=== PATIENT | female | born 1935 | race Caucasian/White ===

== ENCOUNTER 2016-10-18 12:50 | Inpatient (IN) | payer OTHER ==
[2016-10-18 12:57] VITALS: BMI 25.4
--- NOTE | 2016-10-18 14:21 | PDOC ---
History of Present Illness - General Chief Complaint: Lightheaded Stated Complaint: LIGHTHEADED/vomit/diarhea Time Seen by Provider: 10/18/16 14:19 History Source: Patient Exam Limitations: No Limitations - History of Present Illness Initial Comments: 10/18/16 17:05 81-year-old female with history of recurring hyponatremia of unclear etiology presents with nonspecific complaints of feeling unwell and dizzy for a few days and some right-sided lower abdominal discomfort. Pt. states that she has had increased nausea and vomiting starting three days prior. Her nausea and vomiting was the worst today so she presented for evaluation. Admits to nausea, vomiting, dizziness, abdominal pain, frequency and urgency. Denies fevers, chills, sob, cough, syncope, lightheadedness, chest pain, diarrhea, constipation and hematuria. Past History - Travel Traveled outside of the country in the last 30 days: No Close contact w/someone who was outside of country & ill: No - Past Medical History Allergies/Adverse Reactions: Allergies Allergy/AdvReac Type Severity Reaction Status Date / Time No Known Allergies Allergy Verified 10/18/16 12:53 Home Medications: Ambulatory Orders Atorvastatin Ca [Lipitor] 20 mg PO HS 10/18/16 Carbamazepine [Tegretol -] 100 mg PO BID 10/18/16 Glimepiride [Amaryl] 4 mg PO DAILY 10/18/16 Ranitidine HCl [Zantac] 150 mg PO BID 10/18/16 Valsartan [Diovan] 320 mg PO DAILY 10/18/16 Anemia: No Asthma: No Cancer: No Cardiac Disorders: No CVA: No COPD: No CHF: No Dementia: No Diabetes: Yes (NIDDM) GI Disorders: Yes (GERD) Disorders: No HTN: Yes Hypercholesterolemia: Yes Liver Disease: No Seizures: No Thyroid Disease: No Other medical history: vertigo - Surgical History Abdominal Surgery: No Appendectomy: No Cardiac Surgery: No Cholecystectomy: No Lung Surgery: No Neurologic Surgery: No Orthopedic Surgery: No - Psycho/Social/Smoking Cessation Hx Anxiety: No Suicidal Ideation: No Smoking History: Never smoked Have you smoked in the past 12 months: No Information on smoking cessation initiated: No Hx Alcohol Use: No Drug/Substance Use Hx: No Substance Use Type: None Hx Substance Use Treatment: No Review of Systems - Review of Systems Able to Perform ROS?: Yes Is the patient limited Chinese proficient: No Constitutional: Yes: Weakness. No: Chills, Fever, Malaise Respiratory: No: Cough, Shortness of Breath, Wheezing Cardiac (ROS): No: Chest Pain, Lightheadedness, Palpitations, Syncope, Chest Tightness ABD/GI: Yes: Nausea, Vomiting, Other (lower abdominal pain). No: Constipated, Diarrhea : Yes: Frequency, Urgency. No: Burning, Dysuria, Flank Pain, Hematuria Musculoskeletal: No: Back Pain, Joint Pain, Neck Pain Neurological: Yes: Dizziness. No: Headache, Numbness, Paresthesia, Weakness, Unsteady Gait All Other Systems: Reviewed and Negative *Physical Exam - Vital Signs Last Vital Signs Temp Pulse Resp BP Pulse Ox 98.2 F 92 H 16 148/77 97 10/18/16 13:43 10/18/16 13:43 10/18/16 13:43 10/18/16 13:43 10/18/16 13:43 - Physical Exam Comments: 10/18/16 20:09 GENERAL: Well developed, well nourished. Awake and alert. No acute distress, laying in exam bed HEENT: Normocephalic, atraumatic. PERRLA, EOMI. No conjunctival pallor. Sclera are non- icteric. Moist mucous membranes. Oropharynx is clear. NECK: Supple. Full ROM. No JVD. Carotid pulses 2+ and symmetric, without bruits. No thyromegaly. No lymphadenopathy. CARDIOVASCULAR: Regular rate and rhythm. No murmurs, rubs, or gallops. Distal pulses are 2+ and symmetric. PULMONARY: No evidence of respiratory distress. Lungs clear to auscultation bilaterally. No wheezing, rales or rhonchi. ABDOMINAL: TTP of the suprapubic region and RLQ. (-) rovsings, see signs. Soft. Non- distended. No rebound or guarding. No organomegaly. Normoactive bowel sounds. MUSCULOSKELETAL Normal range of motion at all joints. No bony deformities or tenderness. No CVA tenderness. EXTREMITIES: No cyanosis. No clubbing. No edema. No calf tenderness. SKIN: Warm and dry. Normal capillary refill. No rashes. No jaundice. NEUROLOGICAL: Alert, awake, appropriate. Cranial nerves 2-12 intact. No deficits to light touch and temperature in face, upper extremities and lower extremities. No motor deficits in the in face, upper extremities and lower extremities. Normoreflexic in the upper and lower extremities. Normal speech. Toes are down- going bilaterally. Gait is normal without ataxia. PSYCHIATRIC: Cooperative. Good eye contact. Appropriate mood and affect. ED Treatment Course - LABORATORY CBC & Chemistry Diagram: 10/20/16 07:35 10/20/16 07:30 Medical Decision Making - Medical Decision Making 10/18/16 14:10 Patient is a 81-year-old female with past medical history of hyponatremia with unclear origin presents to the emergency department for 3 days of vomiting nausea and dizziness. Differential diagnosis are including but not limited to electrolyte imbalance, infection, ACS. We'll initiate broad workup at this time. 1.CBC, CMP, cardiac labs, UA, UC 2.IV fluids, Zofran 3.reevaluate 10/18/16 14:27 Urine is positive for leuk esterase. WBC's 13. We'll treat empirically for UTI in the emergency department at this time. Patient's current sodium is 124. Could be the cause of her dizziness. We will admit to the hospital for further treatment. Patient's primary care doctor is Dr. Bain. Dr. Ferro admits for him. Will call at this time. Pt, reports feeling better after fluids and zofran. Ceftriaxone started empirically 10/18/16 14:[address] Ferro. Agrees to admission *DC/Admit/Observation/Transfer Diagnosis at time of Disposition: Hyponatremia UTI (urinary tract infection) Qualifiers: Urinary tract infection type: site unspecified Hematuria presence: with hematuria Qualified Code(s): N39.0 - Urinary tract infection, site not specified - Discharge Dispostion Condition at time of disposition: Stable Admit: Yes - Referrals
[2016-10-18] MEDS ORDERED: SODIUM CHLORIDE 1,000 ML IV STA (14:36)
[2016-10-18] MEDS ORDERED: ONDANSETRON 4 MG/2 ML VIAL IVPUSH ONE (14:36)
[2016-10-18] MEDS ORDERED: ONDANSETRON 4 MG/2 ML VIAL ONE (14:52)
[2016-10-18 14:57] LABS: BASOPHIL 0.3 % (0-2.0); MCH 31.5 pg (25.7-33.7); MCHC 34.6 g/dl (32.0-36.0); MEAN CELL VOLUME 91.1 fl (80-96); MEAN PLT VOLUME 7.1 fl (7.5-11.1); NEUTROPHILS 81.7 % (42.8-82.8); PLATELET COUNT 316 K/MM3 (134-434); RDW 12.6 % (11.6-15.6); WHITE BLOOD COUNT 13.6 K/mm3 (4.0-10.0)
[2016-10-18 15:17] LABS: INR 1.06 (0.82-1.09); PROTHROMBIN TIME (PATIENT) 11.7 SEC (9.98-11.88)
[2016-10-18 15:23] LABS: ALBUMIN 3.9 g/dl (3.4-5.0); ANION GAP 13 (8-16); CO2 24 mmol/L (21-32); CREATININE 0.8 mg/dL (0.55-1.02); GLUCOSE,RANDOM 204 mg/dL (74-106); MAGNESIUM 1.8 mg/dL (1.8-2.4); SGOT/AST 13 U/L (15-37); SGPT/ALT 15 U/L (12-78)
[2016-10-18 15:24] LABS: URINE APPEARANCE CLOUDY; URINE BILIRUBIN NEGATIVE (NEGATIVE); URINE BLOOD 2+ (NEGATIVE); URINE COLOR DKYELLOW; URINE GLUCOSE (UA) 2+ (NEGATIVE); URINE KETONE 2+ (NEGATIVE); URINE NITRITE NEGATIVE (NEGATIVE); URINE UROBILINOGEN NEGATIVE mg/dL (0.2-1.0)
[2016-10-18] MEDS ORDERED: ACETAMINOPHEN 1000 MG/100 ML VIAL (NON FORMULARY) IVPB ONE (15:24)
[2016-10-18 15:25] LABS: ALK PHOS 93 U/L (45-117); BILIRUBIN,TOTAL 0.7 mg/dL (0.2-1.0); TOT PROT 7.2 g/dl (6.4-8.2)
[2016-10-18 15:25] LABS: URINE LEUK ESTERASE 2+ (NEGATIVE); URINE PROTEIN 1+ (NEGATIVE)
[2016-10-18] MEDS ORDERED: ACETAMINOPHEN INJECTION 100 ML IVPB ONE (15:28)
[2016-10-18 15:31] LABS: TROPONIN I 0.04 ng/ml (0.00-0.05)
--- NOTE | 2016-10-18 15:45 | PDOC ---
*Physical Exam - Vital Signs Last Vital Signs Temp Pulse Resp BP Pulse Ox 98.1 F 82 17 158/89 98 10/18/16 15:31 10/18/16 15:31 10/18/16 15:31 10/18/16 15:31 10/18/16 15:31 ED Treatment Course - LABORATORY CBC & Chemistry Diagram: 10/18/16 14:50 10/18/16 14:50 - ADDITIONAL ORDERS Additional order review: Laboratory Results 10/18/16 10/18/16 10/18/16 15:01 14:50 14:50 INR 1.06 Sodium Potassium Chloride Carbon Dioxide Anion Gap BUN Creatinine Creat Clearance w eGFR Random Glucose Calcium Magnesium Total Bilirubin AST ALT Alkaline Phosphatase Creatine Kinase Troponin I Total Protein Albumin Lipase Cancelled Urine Color Dkyellow Urine Appearance Cloudy Urine pH 5.0 D Urine Protein 1+ H Urine Glucose (UA) 2+ H Urine Ketones 2+ H Urine Blood 2+ H Urine Nitrite Negative Urine Bilirubin Negative Urine Urobilinogen Negative Ur Leukocyte Esterase 2+ H 10/18/16 10/18/16 14:50 14:50 INR Sodium 125 L Potassium 3.8 Chloride 88 L D Carbon Dioxide 24 Anion Gap 13 BUN 17 D Creatinine 0.8 Creat Clearance w eGFR > 60 Random Glucose 204 H D Calcium 9.0 Magnesium 1.8 Total Bilirubin 0.7 D AST 13 L ALT 15 D Alkaline Phosphatase 93 D Creatine Kinase 45 Troponin I 0.04 Total Protein 7.2 D Albumin 3.9 D Lipase 46 L Urine Color Urine Appearance Urine pH Urine Protein Urine Glucose (UA) Urine Ketones Urine Blood Urine Nitrite Urine Bilirubin Urine Urobilinogen Ur Leukocyte Esterase 10/18/16 14:50 RBC 4.62 MCV 91.1 MCHC 34.6 RDW 12.6 MPV 7.1 L Neutrophils % 81.7 D Lymphocytes % 12.3 D Monocytes % 5.7 Eosinophils % 0.0 D Basophils % 0.3 - Medications Given in the ED: ED Medications Discontinued Medications Generic Name Dose Route Start Last Admin Trade Name Freq PRN Reason Stop Dose Admin Acetaminophen 1,000 mg 10/18/16 15:24 10/18/16 15:31 Ofirmev Injection - IVPB 10/18/16 15:25 1,000 mg ONCE ONE Administration Ondansetron HCl 4 mg 10/18/16 14:36 10/18/16 14:57 Zofran Injection IVPUSH 10/18/16 14:37 4 mg ONCE ONE Administration Medical Decision Making - Medical Decision Making 10/18/16 15:42 Patient seen and evaluated with the nurse practitioner. I agree with the overall evaluation, assessment, and management with the following summary of visit: 81-year-old female with history of recurring hyponatremia of unclear etiology presents with nonspecific complaints of feeling unwell for a few days and some right-sided lower abdominal discomfort. Vital signs normal. Exam as noted, suprapubic discomfort to palpation without guarding or rebound, no CVA tenderness, no guarding or rebound. 81-year-old female with generalized weakness and feeling unwell, also with signs /symptoms of UTI. Sodium 125, we will begin hydration and admit for further care Positive leuk esterase with leukocytosis 13. will treat empirically with antibiotics Admission *DC/Admit/Observation/Transfer Diagnosis at time of Disposition: Hyponatremia - Referrals Referrals: Karl Bain MD [Primary Care Provider] -
[2016-10-18] MEDS ORDERED: METOCLOPRAMIDE HCL INJECTION 10 MG/2 ML VIAL IVPB ONE (15:59)
[2016-10-18] MEDS ORDERED: METOCLOPRAMIDE HCL INJECTION 10 MG/2 ML VIAL ONE (16:02)
[2016-10-18] MEDS ORDERED: CEFTRIAXONE 1 GM in DEXTROSE 5%-WATER - 50 ML IVPB ONE (16:42)
--- NOTE | 2016-10-18 16:42 | EKG ---
Test Reason : Blood Pressure : / mmHG Vent. Rate : 075 BPM Atrial Rate : 075 BPM P-R Int : 242 ms QRS Dur : 074 ms QT Int : 374 ms P-R-T Axes : 050 -02 037 degrees QTc Int : 417 ms SINUS RHYTHM WITH 1ST DEGREE A-V BLOCK OTHERWISE NORMAL ECG WHEN COMPARED WITH ECG OF 23-SEP-2015 17:04, NONSPECIFIC T WAVE ABNORMALITY HAS REPLACED INVERTED T WAVES IN INFERIOR LEADS CLINICAL CORRELATION IS RECOMMENDED Confirmed by SHANA GOLD MD ([id number]) on 10/18/2016 4:41:49 PM Referred By: Confirmed By:SHANA GOLD MD
[2016-10-18] MEDS ORDERED: CEFTRIAXONE 50 ML ONE (16:52)
--- NOTE | 2016-10-18 16:57 | HP ---
Admitting History and Physical - Primary Care Physician PCP: Karl Bain - Admission Chief Complaint: I'm having stomach pain and feeling dizzy History of Present Illness: Ms Seaman is a pleasant 81 year old female complaining of pain and weakness. She says it began last where she felt weak and dizzy. She says it was both vertiginous and lightheadedness, she has history of vertigo. She says she then developed abdominal pain with nausea, vomiting, and diarrhea. She says she would have about 4-5 bowel movements a day that were liquidy and sometimes formed. She did not note abnormal color or blood. She says the abdominal pain is "just pain" and at its worst was 6/10. The pain comes and goes and she does not know of any exacerbating or relieving factors. She also had nausea and vomiting with anorexia, she says the emesis was bilious. She denies fevers, chills, chest pain or pressure, shortness of breath, pain or difficulty urinating, or swelling. History Source: Patient Limitations to Obtaining History: No Limitations - Past Medical History Cardiovascular: Yes: HTN, Hyperlipdemia Endocrine: Yes: Diabetes Mellitus - Past Surgical History Past Surgical History: Yes: Hysterectomy, Tonsillectomy - Smoking History Smoking history: Never smoked Have you smoked in the past 12 months: No - Alcohol/Substance Use Hx Alcohol Use: No History of Substance Use: reports: None - Social History ADL: Independent History of Recent Travel: No Home Medications - Allergies Allergies/Adverse Reactions: Allergies Allergy/AdvReac Type Severity Reaction Status Date / Time No Known Allergies Allergy Verified 10/18/16 12:53 - Home Medications Home Medications: Ambulatory Orders Atorvastatin Ca [Lipitor] 20 mg PO HS 10/18/16 Carbamazepine [Tegretol -] 100 mg PO BID 10/18/16 Glimepiride [Amaryl] 4 mg PO DAILY 10/18/16 Ranitidine HCl [Zantac] 150 mg PO BID 10/18/16 Valsartan [Diovan] 320 mg PO DAILY 10/18/16 Family Disease History - Family Disease History Family Disease History: Other: Sister (alzheimers), Son (migraines) Review of Systems Findings/Remarks: Full review of systems obtained, as per HPI and otherwise negative Physical Examination Vital Signs: Vital Signs Temperature 36.7 C 10/18/16 15:31 Pulse Rate 82 10/18/16 15:31 Respiratory Rate 17 10/18/16 15:31 Blood Pressure 158/89 10/18/16 15:31 O2 Sat by Pulse Oximetry (%) 98 10/18/16 15:31 Constitutional: Yes: Well Nourished, No Distress, Calm Eyes: Yes: Conjunctiva Clear, EOM Intact, PERRL HENT: Yes: Atraumatic, Normocephalic Cardiovascular: Yes: Regular Rate and Rhythm. No: Gallop, Murmur, Rub Respiratory: Yes: Regular, CTA Bilaterally. No: Rales, Rhonchi, Wheezes Gastrointestinal: Yes: Normal Bowel Sounds, Soft, Tenderness (suprapubic, minimal). No: Distention Extremities: Yes: WNL Edema: No Labs: CBC, BMP 10/18/16 14:50 10/18/16 14:50 Imaging - Results Chest X-ray: Image Reviewed (clear per my read) Problem List - Problems (1) UTI (urinary tract infection) Assessment/Plan: -patient found to have UTI -admit to the hospital -start on rocephin -monitor for improvement -follow up cultures Code(s): N39.0 - URINARY TRACT INFECTION, SITE NOT SPECIFIED Qualifiers: Urinary tract infection type: site unspecified Hematuria presence: with hematuria Qualified Code(s): N39.0 - Urinary tract infection, site not specified; R31.9 - Hematuria, unspecified (2) Hyponatremia Assessment/Plan: -exacerbated by fluid loss in diarrhea and emesis -will hydrate with IVF -recheck in am -consult nephrology -check FENa labs Code(s): E87.1 - HYPO-OSMOLALITY AND HYPONATREMIA (3) Gastroenteritis Assessment/Plan: -suspect viral -monitor -clear liquid diet -if diarrhea persists, check stool studies Code(s): K52.9 - NONINFECTIVE GASTROENTERITIS AND COLITIS, UNSPECIFIED (4) Diabetes Assessment/Plan: -continue home medications -clear liquid diabetic diet Code(s): E11.9 - TYPE 2 DIABETES MELLITUS WITHOUT COMPLICATIONS (5) HTN (hypertension) Assessment/Plan: -continue diovan Code(s): I10 - ESSENTIAL (PRIMARY) HYPERTENSION
[2016-10-18] MEDS: SODIUM CHLORIDE 1,000 ML IV SCH (17:14)
[2016-10-18 17:55] LABS: URINE BACTERIA FEW /hpf (NONE SEEN); URINE MUCUS RARE; URINE RBC 4 /hpf (0-3); URINE WBC 62 /hpf (3-5)
[2016-10-18 19:09] LABS: OSMOLALITY,SERUM 269 mosm/kg (278-305)
[2016-10-18] MEDS: oxyCODONE HCL 5 MG TABLET PO PRN (20:47)
[2016-10-18] MEDS: ACETAMINOPHEN 325 MG TABLET (FP) PO PRN (20:48)
[2016-10-18] MEDS: INSULIN SLIDING SCALE (NOVOLOG) 1 VIAL SQ SCH (22:21)
[2016-10-18] MEDS: RANITIDINE HCL 150 MG TABLET (FP) PO SCH (22:41)
[2016-10-18] MEDS: ATORVASTATIN CA 20 MG TABLET (FP) PO SCH (22:41)
[2016-10-18] MEDS: carBAMazepine 100 MG TAB.CHEW PO SCH (22:41)
[2016-10-19] MEDS: SODIUM CHLORIDE 1,000 ML IV SCH ×2 (04:43→16:15)
[2016-10-19] MEDS: INSULIN SLIDING SCALE (NOVOLOG) 1 VIAL SQ SCH ×4 (06:02→21:39)
[2016-10-19] MEDS: GLIMEPIRIDE 4 MG TABLET (FP) PO SCH (06:19)
[2016-10-19 07:50] LABS: BASOPHIL 0.6 % (0-2.0); EOSINOPHIL 0.5 % (0-4.5); MEAN CELL VOLUME 91.6 fl (80-96); MEAN PLT VOLUME 7.1 fl (7.5-11.1); NEUTROPHILS 64.7 % (42.8-82.8); PLATELET COUNT 250 K/MM3 (134-434); RDW 12.6 % (11.6-15.6); WHITE BLOOD COUNT 8.4 K/mm3 (4.0-10.0)
[2016-10-19 08:30] LABS: ANION GAP 9 (8-16); CALCIUM 8.2 mg/dL (8.5-10.1); CO2 26 mmol/L (21-32); GLUCOSE,RANDOM 120 mg/dL (74-106); MAGNESIUM 1.9 mg/dL (1.8-2.4)
[2016-10-19 08:32] LABS: CREATININE 0.7 mg/dL (0.55-1.02); PHOSPHOROUS 2.6 mg/dL (2.5-4.9)
[2016-10-19] MEDS: ONDANSETRON 4 MG/2 ML VIAL IVPB PRN ×2 (08:48→23:17)
[2016-10-19] MEDS: oxyCODONE HCL 5 MG TABLET PO PRN ×3 (08:51→21:43)
[2016-10-19] MEDS: ACETAMINOPHEN 325 MG TABLET (FP) PO PRN ×4 (08:52→23:16)
[2016-10-19] MEDS: ENOXAPARIN NA (PORCINE) 40 MG/0.4 ML DISP.SYRIN SQ SCH (09:04)
[2016-10-19] MEDS: LACTOBACILLUS ACIDOPHILUS 1 EACH TAB (FP) PO SCH (09:04)
[2016-10-19] MEDS: VALSARTAN 160 MG TABLET (UD) PO SCH (09:04)
[2016-10-19] MEDS: RANITIDINE HCL 150 MG TABLET (FP) PO SCH ×2 (09:05→21:42)
[2016-10-19] MEDS ORDERED: PT OWN MED DRAWER 7, Y5N ONE ×2 (09:53→23:47)
[2016-10-19] MEDS ORDERED: DEXTROSE 5%-WATER - 50 ML IVPB ONE (09:53)
[2016-10-19] MEDS ORDERED: cefTRIAXone SODIUM 1 GM VIAL ONE (09:53)
[2016-10-19] MEDS: carBAMazepine 100 MG TAB.CHEW PO SCH ×2 (09:55→23:51)
[2016-10-19] MEDS: CEFTRIAXONE 1 GM in DEXTROSE 5%-WATER - 50 ML IVPB SCH (09:56)
[2016-10-19] MEDS ORDERED: CEFTRIAXONE 50 ML IVPB SCH (10:00)
--- NOTE | 2016-10-19 13:26 | PN ---
Progress Note, Physician Chief Complaint: Ms Seaman says she is still feeling bad today. Says she has history of migraines and now has a headache. Still with some suprapubic pain. Says nausea, vomiting, and diarrhea has resolved and would like to advance diet. No cp or sob. - Current Medication List Current Medications: Active Medications Acetaminophen (Tylenol -) 650 mg PO Q4H PRN PRN Reason: FEVER OR PAIN Acetaminophen (Tylenol -) 325 mg PO Q4H PRN PRN Reason: PAIN Stop: 10/21/16 20:17 Last Admin: 10/19/16 08:52 Dose: 325 mg Atorvastatin Calcium (Lipitor -) 20 mg PO HS [facility] Last Admin: 10/18/16 22:41 Dose: 20 mg Carbamazepine (Tegretol -) 100 mg PO BID [facility] Last Admin: 10/19/16 09:55 Dose: 100 mg Enoxaparin Sodium (Lovenox -) 40 mg SQ DAILY [facility] Last Admin: 10/19/16 09:04 Dose: 40 mg Glimepiride (Amaryl -) 4 mg PO DAILY@0700 [facility] Last Admin: 10/19/16 06:19 Dose: 4 mg Sodium Chloride (Normal Saline -) 1,000 mls @ 100 mls/hr IV ASDIR [facility] Last Admin: 10/19/16 04:43 Dose: 100 mls/hr Ceftriaxone Sodium 1 gm/ (Dextrose) 50 mls @ 100 mls/hr IVPB DAILY [facility] Last Admin: 10/19/16 09:56 Dose: 100 mls/hr Insulin Aspart (Novolog Vial Sliding Scale -) 0 vial SQ ACHS [facility] PRN Reason: Protocol Last Admin: 10/19/16 11:40 Dose: Not Given Lactobacillus Acidophilus (Bacid -) 1 tab PO DAILY [facility] Last Admin: 10/19/16 09:04 Dose: 1 tab Ondansetron HCl (Zofran Injection) 4 mg IVPB Q6H PRN PRN Reason: NAUSEA Last Admin: 10/19/16 08:48 Dose: 4 mg Oxycodone HCl (Roxicodone -) 5 mg PO Q4H PRN PRN Reason: PAIN LEVEL 6-10 Last Admin: 10/19/16 08:51 Dose: 5 mg Ranitidine HCl (Zantac -) 150 mg PO BID [facility] Last Admin: 10/19/16 09:05 Dose: 150 mg Valsartan (Diovan -) 320 mg PO DAILY [place] Last Admin: 10/19/16 09:04 Dose: 320 mg - Objective Vital Signs: Vital Signs Temperature 36.6 C 10/19/16 10:00 Pulse Rate 63 10/19/16 10:00 Respiratory Rate 20 10/19/16 10:00 Blood Pressure 155/77 10/19/16 10:00 O2 Sat by Pulse Oximetry (%) 98 10/18/16 19:06 Constitutional: Yes: Well Nourished, No Distress, Calm Cardiovascular: Yes: Regular Rate and Rhythm. No: Gallop, Murmur, Rub Respiratory: Yes: Regular, CTA Bilaterally. No: Rales, Rhonchi, Wheezes Gastrointestinal: Yes: Normal Bowel Sounds, Soft. No: Distention, Tenderness Extremities: Yes: WNL Edema: No Labs: CBC, BMP 10/19/16 07:40 10/19/16 07:40 INR, PTT INR 1.06 (0.82-1.09) 10/18/16 14:50 Problem List - Problems (1) UTI (urinary tract infection) Code(s): N39.0 - URINARY TRACT INFECTION, SITE NOT SPECIFIED Qualifiers: Urinary tract infection type: site unspecified Hematuria presence: with hematuria Qualified Code(s): N39.0 - Urinary tract infection, site not specified; R31.9 - Hematuria, unspecified (2) Hyponatremia Code(s): E87.1 - HYPO-OSMOLALITY AND HYPONATREMIA (3) Gastroenteritis Code(s): K52.9 - NONINFECTIVE GASTROENTERITIS AND COLITIS, UNSPECIFIED (4) Diabetes Code(s): E11.9 - TYPE 2 DIABETES MELLITUS WITHOUT COMPLICATIONS (5) HTN (hypertension) Code(s): I10 - ESSENTIAL (PRIMARY) HYPERTENSION (6) Migraine Code(s): G43.909 - MIGRAINE, UNSP, NOT INTRACTABLE, WITHOUT STATUS MIGRAINOSUS (7) Trigeminal neuralgia Code(s): G50.0 - TRIGEMINAL NEURALGIA Assessment/Plan (1) UTI (urinary tract infection) Assessment/Plan: -continue rocephin day 2 -monitor for improvement Code(s): N39.0 - URINARY TRACT INFECTION, SITE NOT SPECIFIED Qualifiers: Urinary tract infection type: site unspecified Hematuria presence: with hematuria Qualified Code(s): N39.0 - Urinary tract infection, site not specified; R31.9 - Hematuria, unspecified (2) Hyponatremia Assessment/Plan: -secondary to dehydration -nephrology following -improved with IVF Code(s): E87.1 - HYPO-OSMOLALITY AND HYPONATREMIA (3) Gastroenteritis Assessment/Plan: -improving -however if suprapubic pain persists, will obtain CT scan Code(s): K52.9 - NONINFECTIVE GASTROENTERITIS AND COLITIS, UNSPECIFIED (4) Diabetes Assessment/Plan: -continue home medications -advance diet to full liquid Code(s): E11.9 - TYPE 2 DIABETES MELLITUS WITHOUT COMPLICATIONS (5) HTN (hypertension) Assessment/Plan: -continue diovan Code(s): I10 - ESSENTIAL (PRIMARY) HYPERTENSION (6) Migraine -consult neurology (7) Trigeminal neuralgia -patient describes symptoms of trigeminal neuralgia on the right side -continue tegretol
--- NOTE | 2016-10-19 13:46 | CONSULT ---
Consult Consult Specialty:: Nephrology Reason for Consultation:: hyponatremia - History of Present Illness Chief Complaint: malaise, vomiting, diarrhea History of Present Illness: Pt is a 81 year old female with pmhx of hyponatremia, HTN and chol who presents to the ER complaining of malaise. She was found to have hyponatremia and I was called to evaluate her. She says she has felt sick for about 5 days. She complains of nausea and vomiting. She also complains of several episodes of diarrhea. She says she has not had much appetite. Her sodium did improved with saline. She feels a little better today. She denies nsaid use. She denies dysuria or hematuria. - History Source History Provided By: Patient, Medical Record - Past Medical History Cardio/Vascular: Yes: HTN, Hyperlipdemia Endocrine: Yes: Diabetes Mellitus - Past Surgical History Past Surgical History: Yes: Hysterectomy, Tonsillectomy - Alcohol/Substance Use Hx Alcohol Use: No History of Substance Use: reports: None - Smoking History Smoking history: Never smoked Have you smoked in the past 12 months: No - Social History ADL: Independent History of Recent Travel: No Home Medications - Allergies Allergies/Adverse Reactions: Allergies Allergy/AdvReac Type Severity Reaction Status Date / Time No Known Allergies Allergy Verified 10/18/16 12:53 - Home Medications Home Medications: Ambulatory Orders Atorvastatin Ca [Lipitor] 20 mg PO HS 10/18/16 Carbamazepine [Tegretol -] 100 mg PO BID 10/18/16 Glimepiride [Amaryl] 4 mg PO DAILY 10/18/16 Ranitidine HCl [Zantac] 150 mg PO BID 10/18/16 Valsartan [Diovan] 320 mg PO DAILY 10/18/16 Family Disease History - Family Disease History Family Disease History: Other: Sister (alzheimers), Son (migraines) Review of Systems - Review of Systems Constitutional: reports: Malaise Eyes: reports: No Symptoms HENT: reports: No Symptoms Neck: reports: No Symptoms Cardiovascular: reports: No Symptoms Respiratory: reports: No Symptoms Gastrointestinal: reports: Diarrhea, Vomiting Genitourinary: reports: No Symptoms Musculoskeletal: reports: No Symptoms Integumentary: reports: No Symptoms Neurological: reports: No Symptoms Endocrine: reports: No Symptoms Physical Exam Vital Signs: Vital Signs Temperature 97.9 F 10/19/16 10:00 Pulse Rate 63 08/30/17 10:00 Respiratory Rate 20 10/19/16 10:00 Blood Pressure 155/77 10/19/16 10:00 O2 Sat by Pulse Oximetry (%) 98 10/18/16 19:06 Constitutional: Yes: Calm Eyes: Yes: Conjunctiva Clear HENT: Yes: Atraumatic Neck: Yes: Supple Cardiovascular: Yes: S1, S2 Respiratory: Yes: CTA Bilaterally Gastrointestinal: Yes: Tenderness Renal/: Yes: WNL Musculoskeletal: Yes: WNL Edema: No Neurological: Yes: Oriented Psychiatric: Yes: Oriented Labs: CBC, BMP 10/19/16 07:40 10/19/16 07:40 Laboratory Tests 10/18/16 10/18/16 10/18/16 14:50 14:50 15:01 WBC 13.6 H D Hgb Sodium 125 L Potassium 3.8 Chloride 88 L D Carbon Dioxide Anion Gap BUN Creatinine Serum Osmolality Urine Color Dkyellow Urine Appearance Cloudy Urine pH 5.0 D Urine Protein 1+ H Urine Glucose (UA) 2+ H Urine Blood 2+ H Urine Osmolality 10/18/16 10/19/16 10/19/16 18:30 07:40 07:40 WBC 8.4 D Hgb 12.6 D Sodium 131 L Potassium 3.5 Chloride 96 L Carbon Dioxide 26 Anion Gap 9 BUN 13 D Creatinine 0.7 Serum Osmolality 269 L Urine Color Urine Appearance Urine pH Urine Protein Urine Glucose (UA) Urine Blood Urine Osmolality 673 D Imaging - Results Chest X-ray: Report Reviewed Problem List - Problems (1) Gastroenteritis Code(s): K52.9 - NONINFECTIVE GASTROENTERITIS AND COLITIS, UNSPECIFIED (2) Hyponatremia Code(s): E87.1 - HYPO-OSMOLALITY AND HYPONATREMIA (3) Abdominal pain Code(s): R10.9 - UNSPECIFIED ABDOMINAL PAIN (4) Diarrhea Code(s): R19.7 - DIARRHEA, UNSPECIFIED (5) HTN (hypertension) Code(s): I10 - ESSENTIAL (PRIMARY) HYPERTENSION Assessment/Plan Current Medications Generic Name Dose Route Start Last Admin Trade Name Freq PRN Reason Stop Dose Admin Acetaminophen 650 mg 10/18/16 16:50 Tylenol - PO Q4H PRN FEVER OR PAIN Acetaminophen 325 mg 10/18/16 20:18 10/19/16 16:15 Tylenol - PO 10/21/16 20:17 325 mg Q4H PRN Administration PAIN Atorvastatin Calcium 20 mg 10/18/16 22:00 10/18/16 22:41 Lipitor - PO 20 mg HS [place] Administration Carbamazepine 100 mg 10/18/16 22:00 10/19/16 09:55 Tegretol - PO 100 mg BID [place] Administration Enoxaparin Sodium 40 mg 10/19/16 10:00 10/19/16 09:04 Lovenox - SQ 40 mg DAILY [place] Administration Glimepiride 4 mg 10/19/16 07:00 10/19/16 06:19 Amaryl - PO 4 mg DAILY@0700 [place] Administration Sodium Chloride 1,000 mls @ 100 mls/hr 10/18/16 17:00 10/19/16 16:15 Normal Saline - IV 100 mls/hr ASDIR [place] Administration Ceftriaxone Sodium 1 gm/ 50 mls @ 100 mls/hr 10/19/16 10:00 10/19/16 09:56 Dextrose IVPB 100 mls/hr DAILY [place] Administration Insulin Aspart 0 vial 10/18/16 22:00 10/19/16 17:33 Novolog Vial Sliding Scale - SQ Not Given ACHS [facility] Protocol Lactobacillus Acidophilus 1 tab 10/19/16 10:00 10/19/16 09:04 Bacid - PO 1 tab DAILY [place] Administration Ondansetron HCl 4 mg 10/18/16 16:50 10/19/16 08:48 Zofran Injection IVPB 4 mg Q6H PRN Administration NAUSEA Oxycodone HCl 5 mg 10/18/16 20:18 10/19/16 16:14 Roxicodone - PO 5 mg Q4H PRN Administration PAIN LEVEL 6-10 Ranitidine HCl 150 mg 10/18/16 22:00 10/19/16 09:05 Zantac - PO 150 mg BID [place] Administration Valsartan 320 mg 10/19/16 10:00 10/19/16 09:04 Diovan - PO 320 mg DAILY [place] Administration Impression 1. hyponatremia 2. gastroenteritis 3. UTI 4. hyperlipidemia 5. HTN Plan - sodium is improving - likely etiology of hyponatremia at least in part of salt and volume depletion secondary to GI losses - once sodium stabilizes and pt improves, if she is still hyponatremic we can repeat the workup - cont current meds - repeat bmp in am - will follow Dr Almendarez
[2016-10-19] MEDS ORDERED: INSULIN (NOVOLOG) ASPART 100 UNITS/ML 10ML VIAL ONE (19:58)
[2016-10-19] MEDS: ATORVASTATIN CA 20 MG TABLET (FP) PO SCH (21:38)
[2016-10-20] MEDS: GLIMEPIRIDE 4 MG TABLET (FP) PO SCH (06:09)
[2016-10-20] MEDS: INSULIN SLIDING SCALE (NOVOLOG) 1 VIAL SQ SCH ×4 (06:10→23:44)
[2016-10-20] MEDS: ACETAMINOPHEN 325 MG TABLET (FP) PO PRN (06:11)
[2016-10-20] MEDS: oxyCODONE HCL 5 MG TABLET PO PRN (06:11)
[2016-10-20] MEDS: ONDANSETRON 4 MG/2 ML VIAL IVPB PRN (06:18)
[2016-10-20 08:52] LABS: BASOPHIL 0.6 % (0-2.0); EOSINOPHIL 0.8 % (0-4.5); MCH 31.7 pg (25.7-33.7); MCHC 34.5 g/dl (32.0-36.0); MEAN CELL VOLUME 91.9 fl (80-96); MEAN PLT VOLUME 7.9 fl (7.5-11.1); NEUTROPHILS 58.1 % (42.8-82.8); PLATELET COUNT 207 K/MM3 (134-434); RDW 12.4 % (11.6-15.6); WHITE BLOOD COUNT 5.7 K/mm3 (4.0-10.0)
[2016-10-20 09:19] LABS: ANION GAP 8 (8-16); CALCIUM 8.5 mg/dL (8.5-10.1); CO2 26 mmol/L (21-32); GLUCOSE,RANDOM 111 mg/dL (74-106); MAGNESIUM 2.1 mg/dL (1.8-2.4)
[2016-10-20 09:22] LABS: CREATININE 0.6 mg/dL (0.55-1.02); PHOSPHOROUS 2.6 mg/dL (2.5-4.9)
[2016-10-20] MEDS ORDERED: DEXTROSE 5%-WATER - 50 ML IVPB ONE (09:28)
[2016-10-20] MEDS ORDERED: cefTRIAXone SODIUM 1 GM VIAL ONE (09:28)
[2016-10-20] MEDS ORDERED: POTASSIUM CHLORIDE TABS 20 MEQ TABLET.ER (FP) PO ONE (09:45)
[2016-10-20] MEDS: carBAMazepine 100 MG TAB.CHEW PO SCH ×2 (09:47→23:22)
[2016-10-20] MEDS: VALSARTAN 160 MG TABLET (UD) PO SCH (09:49)
[2016-10-20] MEDS: CEFTRIAXONE 1 GM in DEXTROSE 5%-WATER - 50 ML IVPB SCH (09:49)
[2016-10-20] MEDS: RANITIDINE HCL 150 MG TABLET (FP) PO SCH ×2 (09:50→23:22)
[2016-10-20] MEDS: LACTOBACILLUS ACIDOPHILUS 1 EACH TAB (FP) PO SCH (09:50)
[2016-10-20] MEDS: ENOXAPARIN NA (PORCINE) 40 MG/0.4 ML DISP.SYRIN SQ SCH (09:54)
--- NOTE | 2016-10-20 10:21 | CONSULT ---
Consult - text type - Consultation Consultation Note: Neurology History of Present Illness: 81 year old female here complaining of pain and weakness. She says it began last where she felt weak and dizzy. She says it was both vertiginous and lightheadedness, she has history of vertigo. She says she then developed abdominal pain with nausea, vomiting, and diarrhea. While admitted she has been having migraine headaches which occur episodically. There can be associated photophobia and states Fioricet is helpful for her. This AM, headache was improved but still with some head pain. She has underlying HTN and may also have tension headache associated. Of note, she is being treated for Trigeminial Neuralgia with Tegretol. She is also being treated for UTI with Ceftriaxone. - Past Medical History Cardiovascular: Yes: HTN, Hyperlipdemia Endocrine: Yes: Diabetes Mellitus - Past Surgical History Past Surgical History: Yes: Hysterectomy, Tonsillectomy - Smoking History Smoking history: Never smoked Have you smoked in the past 12 months: No - Alcohol/Substance Use Hx Alcohol Use: No History of Substance Use: reports: None - Social History ADL: Independent History of Recent Travel: No Home Medications - Allergies Allergies/Adverse Reactions: Allergies Allergy/AdvReac Type Severity Reaction Status Date / Time No Known Allergies Allergy Verified 10/18/16 12:53 Home Medication List Medication Instructions Recorded Confirmed Type Atorvastatin Ca [Lipitor] 20 mg PO HS 10/18/16 10/18/16 History Carbamazepine [Tegretol -] 100 mg PO BID 10/18/16 10/18/16 History Glimepiride [Amaryl] 4 mg PO DAILY 10/18/16 10/18/16 History Ranitidine HCl [Zantac] 150 mg PO BID 10/18/16 10/18/16 History Valsartan [Diovan] 320 mg PO DAILY 10/18/16 10/18/16 History Active Medications Generic Name Dose Route Start Last Admin Trade Name Freq PRN Reason Stop Dose Admin Acetaminophen 650 mg 10/18/16 16:50 10/19/16 23:16 Tylenol - PO 650 mg Q4H PRN Administration FEVER OR PAIN Acetaminophen 325 mg 10/18/16 20:18 10/20/16 06:11 Tylenol - PO 10/21/16 20:17 325 mg Q4H PRN Administration PAIN Atorvastatin Calcium 20 mg 10/18/16 22:00 10/19/16 21:38 Lipitor - PO 20 mg HS [place] Administration Carbamazepine 100 mg 10/18/16 22:00 10/20/16 09:47 Tegretol - PO 100 mg BID [place] Administration Enoxaparin Sodium 40 mg 10/19/16 10:00 10/20/16 09:54 Lovenox - SQ 40 mg DAILY [place] Administration Glimepiride 4 mg 10/19/16 07:00 10/20/16 06:09 Amaryl - PO 4 mg DAILY@0700 [place] Administration Sodium Chloride 1,000 mls @ 100 mls/hr 10/18/16 17:00 10/19/16 16:15 Normal Saline - IV 100 mls/hr ASDIR [place] Administration Ceftriaxone Sodium 1 gm/ 50 mls @ 100 mls/hr 10/19/16 10:00 10/20/16 09:49 Dextrose IVPB 100 mls/hr DAILY [place] Administration Insulin Aspart 0 vial 10/18/16 22:00 10/20/16 06:10 Novolog Vial Sliding Scale - SQ Not Given ACHS [facility] Protocol Lactobacillus Acidophilus 1 tab 10/19/16 10:00 10/20/16 09:50 Bacid - PO 1 tab DAILY [place] Administration Ondansetron HCl 4 mg 10/18/16 16:50 10/20/16 06:18 Zofran Injection IVPB 4 mg Q6H PRN Administration NAUSEA Oxycodone HCl 5 mg 10/18/16 20:18 10/20/16 06:11 Roxicodone - PO 5 mg Q4H PRN Administration PAIN LEVEL 6-10 Ranitidine HCl 150 mg 10/18/16 22:00 10/20/16 09:50 Zantac - PO 150 mg BID [place] Administration Valsartan 320 mg 10/19/16 10:00 10/20/16 09:49 Diovan - PO 320 mg DAILY [place] Administration Family Disease History - Family Disease History Family Disease History: Other: Sister (alzheimers), Son (migraines) Review of Systems Findings/Remarks: Full review of systems obtained, as per HPI and otherwise negative Physical Examination Vital Signs: Last Vital Signs Temp Pulse Resp BP Pulse Ox 98.1 F 80 18 143/60 96 10/20/16 07:03 10/20/16 07:03 10/20/16 07:03 10/20/16 07:03 10/19/16 21:00 Constitutional: Yes: Well Nourished, No Distress, Calm Eyes: Yes: Conjunctiva Clear, EOM Intact, PERRL HENT: Yes: Atraumatic, Normocephalic Cardiovascular: Yes: Regular Rate and Rhythm. No: Gallop, Murmur, Rub Respiratory: Yes: Regular, CTA Bilaterally. No: Rales, Rhonchi, Wheezes Gastrointestinal: Yes: Normal Bowel Sounds, Soft, Tenderness (suprapubic, minimal). No: Distention Extremities: Yes: WNL Edema: No Neuro: Awake, alert, conversive, no confusion, CN intact and no aphasia, Strength equal b/l, sensory intact to tactile stimulation, finger to nose normal , gait deferred CBCD WBC 5.7 K/mm3 (4.0-10.0) D 10/20/16 07:35 RBC 4.14 M/mm3 (3.60-5.2) 10/20/16 07:35 Hgb 13.1 GM/dL (10.7-15.3) 10/20/16 07:35 Hct 38.0 % (32.4-45.2) 10/20/16 07:35 MCV 91.9 fl (80-96) 10/20/16 07:35 MCHC 34.5 g/dl (32.0-36.0) 10/20/16 07:35 RDW 12.4 % (11.6-15.6) 10/20/16 07:35 Plt Count 207 K/MM3 (134-434) 10/20/16 07:35 MPV 7.9 fl (7.5-11.1) D 10/20/16 07:35 CMP Sodium 138 mmol/L (136-145) 10/20/16 07:30 Potassium 3.3 mmol/L (3.5-5.1) L 10/20/16 07:30 Chloride 104 mmol/L (98-107) 10/20/16 07:30 Carbon Dioxide 26 mmol/L (21-32) 10/20/16 07:30 Anion Gap 8 (8-16) 10/20/16 07:30 BUN 7 mg/dL (7-18) D 10/20/16 07:30 Creatinine 0.6 mg/dL (0.55-1.02) 10/20/16 07:30 Creat Clearance w eGFR > 60 (>60) 10/18/16 14:50 Random Glucose 111 mg/dL (74-106) H 10/20/16 07:30 Calcium 8.5 mg/dL (8.5-10.1) 10/20/16 07:30 Total Bilirubin 0.7 mg/dL (0.2-1.0) D 10/18/16 14:50 AST 13 U/L (15-37) L 10/18/16 14:50 ALT 15 U/L (12-78) D 10/18/16 14:50 Alkaline Phosphatase 93 U/L (45-117) D 10/18/16 14:50 Total Protein 7.2 g/dl (6.4-8.2) D 10/18/16 14:50 Albumin 3.9 g/dl (3.4-5.0) D 10/18/16 14:50 CARDIAC ENZYMES Creatine Kinase 45 IU/L (26-192) 10/18/16 14:50 Troponin I 0.04 ng/ml (0.00-0.05) 10/18/16 14:50 Imaging - Results Chest X-ray: Image Reviewed Plan 81 year old female here complaining of pain and weakness. She says it began last where she felt weak and dizzy. She says it was both vertiginous and lightheadedness, she has history of vertigo. She says she then developed abdominal pain with nausea, vomiting, and diarrhea. While admitted she has been having migraine headaches which occur episodically. There can be associated photophobia and states Fioricet is helpful for her. This AM, headache was improved but still with some head pain. She has underlying HTN and may also have tension headache associated. Of note, she is being treated for Trigeminial Neuralgia with Tegretol. She is also being treated for UTI with Ceftriaxone. Will add Fioricet to regiment, PRN Continue Ceftriaxone for UTI Continue hydration for gastro, dehydration can precipitate headache Continue Diovan for HTN, goal BP < 140/90 Will hold off on imaging Tegretol for Trigeminal neuralgia
[2016-10-20] MEDS: SODIUM CHLORIDE 1,000 ML IV SCH ×2 (14:03→17:29)
[2016-10-20] MEDS: metroNIDAZOLE 250 MG TABLET PO SCH ×2 (15:13→23:21)
[2016-10-20] MEDS: ACETAMINOPHEN/CAFFEINE/BUTALBITAL 1 TAB PO PRN ×2 (15:15→23:25)
--- NOTE | 2016-10-20 15:36 | PN ---
Progress Note, Physician Chief Complaint: Ms Seaman says she is feeling better today. Says having a little diarrhea but her abdominal pain resolved. No cp, sob, n/v. - Current Medication List Current Medications: Active Medications Acetaminophen (Tylenol -) 650 mg PO Q4H PRN PRN Reason: FEVER OR PAIN Last Admin: 10/19/16 23:16 Dose: 650 mg Acetaminophen (Tylenol -) 325 mg PO Q4H PRN PRN Reason: PAIN Stop: 10/21/16 20:17 Last Admin: 10/20/16 06:11 Dose: 325 mg Acetaminophen/Butalbital/Caffeine (Fioricet -) 1 tablet PO Q6H PRN PRN Reason: HEADACHE Last Admin: 10/20/16 15:15 Dose: 1 tablet Atorvastatin Calcium (Lipitor -) 20 mg PO HS [facility] Last Admin: 10/19/16 21:38 Dose: 20 mg Carbamazepine (Tegretol -) 100 mg PO BID [facility] Last Admin: 10/20/16 09:47 Dose: 100 mg Enoxaparin Sodium (Lovenox -) 40 mg SQ DAILY [facility] Last Admin: 10/20/16 09:54 Dose: 40 mg Glimepiride (Amaryl -) 4 mg PO DAILY@0700 [facility] Last Admin: 10/20/16 06:09 Dose: 4 mg Sodium Chloride (Normal Saline -) 1,000 mls @ 100 mls/hr IV ASDIR [facility] Last Admin: 10/20/16 14:03 Dose: 100 mls/hr Ceftriaxone Sodium 1 gm/ (Dextrose) 50 mls @ 100 mls/hr IVPB DAILY [facility] Last Admin: 10/20/16 09:49 Dose: 100 mls/hr Insulin Aspart (Novolog Vial Sliding Scale -) 0 vial SQ ACHS [place] PRN Reason: Protocol Last Admin: 10/20/16 11:23 Dose: Not Given Lactobacillus Acidophilus (Bacid -) 1 tab PO DAILY [facility] Last Admin: 10/20/16 09:50 Dose: 1 tab Metronidazole (Flagyl -) 500 mg PO TID [facility] Last Admin: 10/20/16 15:13 Dose: 500 mg Ondansetron HCl (Zofran Injection) 4 mg IVPB Q6H PRN PRN Reason: NAUSEA Last Admin: 10/20/16 06:18 Dose: 4 mg Oxycodone HCl (Roxicodone -) 5 mg PO Q4H PRN PRN Reason: PAIN LEVEL 6-10 Last Admin: 10/20/16 06:11 Dose: 5 mg Ranitidine HCl (Zantac -) 150 mg PO BID [facility] Last Admin: 10/20/16 09:50 Dose: 150 mg Valsartan (Diovan -) 320 mg PO DAILY [facility] Last Admin: 10/20/16 09:49 Dose: 320 mg - Objective Vital Signs: Vital Signs Temperature 36.9 C 10/20/16 10:00 Pulse Rate 64 10/20/16 10:00 Respiratory Rate 18 10/20/16 10:00 Blood Pressure 153/75 10/20/16 10:00 O2 Sat by Pulse Oximetry (%) 97 10/20/16 09:00 Constitutional: Yes: Well Nourished, No Distress, Calm Cardiovascular: Yes: Regular Rate and Rhythm. No: Gallop, Murmur, Rub Respiratory: Yes: Regular, CTA Bilaterally. No: Rales, Rhonchi, Wheezes Gastrointestinal: Yes: Normal Bowel Sounds, Soft. No: Distention, Tenderness Extremities: Yes: WNL Edema: No Labs: CBC, BMP 10/20/16 07:35 10/20/16 07:30 INR, PTT INR 1.06 (0.82-1.09) 10/18/16 14:50 Problem List - Problems (1) UTI (urinary tract infection) Code(s): N39.0 - URINARY TRACT INFECTION, SITE NOT SPECIFIED Qualifiers: Urinary tract infection type: site unspecified Hematuria presence: with hematuria Qualified Code(s): N39.0 - Urinary tract infection, site not specified; R31.9 - Hematuria, unspecified (2) Hyponatremia Code(s): E87.1 - HYPO-OSMOLALITY AND HYPONATREMIA (3) Gastroenteritis Code(s): K52.9 - NONINFECTIVE GASTROENTERITIS AND COLITIS, UNSPECIFIED (4) Diabetes Code(s): E11.9 - TYPE 2 DIABETES MELLITUS WITHOUT COMPLICATIONS (5) HTN (hypertension) Code(s): I10 - ESSENTIAL (PRIMARY) HYPERTENSION (6) Migraine Code(s): G43.909 - MIGRAINE, UNSP, NOT INTRACTABLE, WITHOUT STATUS MIGRAINOSUS (7) Trigeminal neuralgia Code(s): G50.0 - TRIGEMINAL NEURALGIA Assessment/Plan (1) UTI (urinary tract infection) Assessment/Plan: -continue rocephin day 3 -cultures positive -await sensitivities Code(s): N39.0 - URINARY TRACT INFECTION, SITE NOT SPECIFIED Qualifiers: Urinary tract infection type: site unspecified Hematuria presence: with hematuria Qualified Code(s): N39.0 - Urinary tract infection, site not specified; R31.9 - Hematuria, unspecified (2) Hyponatremia Assessment/Plan: -secondary to dehydration -nephrology following -improved with IVF Code(s): E87.1 - HYPO-OSMOLALITY AND HYPONATREMIA (3) Gastroenteritis Assessment/Plan: -pain improving, diarrhea return -upon my exam was having minimal diarrhea -however in discussing with Dr Almendarez, had increased diarrhea later -stool studies including c diff -add flagyl -will obtain CT scan abdomen/pelvis Code(s): K52.9 - NONINFECTIVE GASTROENTERITIS AND COLITIS, UNSPECIFIED (4) Diabetes Assessment/Plan: -continue home medications -advance diet to full liquid Code(s): E11.9 - TYPE 2 DIABETES MELLITUS WITHOUT COMPLICATIONS (5) HTN (hypertension) Assessment/Plan: -continue diovan Code(s): I10 - ESSENTIAL (PRIMARY) HYPERTENSION (6) Migraine -appreciate neurology assistance -fioricet added (7) Trigeminal neuralgia -patient describes symptoms of trigeminal neuralgia on the right side -continue tegretol
--- NOTE | 2016-10-20 15:39 | PN ---
Progress Note, Physician History of Present Illness: Pt seen and examined at bedside. She is awake and alert. She says that the diarrhea is worse today. - Current Medication List Current Medications: Active Medications Acetaminophen (Tylenol -) 650 mg PO Q4H PRN PRN Reason: FEVER OR PAIN Last Admin: 10/19/16 23:16 Dose: 650 mg Acetaminophen (Tylenol -) 325 mg PO Q4H PRN PRN Reason: PAIN Stop: 10/21/16 20:17 Last Admin: 10/20/16 06:11 Dose: 325 mg Acetaminophen/Butalbital/Caffeine (Fioricet -) 1 tablet PO Q6H PRN PRN Reason: HEADACHE Last Admin: 10/20/16 15:15 Dose: 1 tablet Atorvastatin Calcium (Lipitor -) 20 mg PO HS [facility] Last Admin: 10/19/16 21:38 Dose: 20 mg Carbamazepine (Tegretol -) 100 mg PO BID [facility] Last Admin: 10/20/16 09:47 Dose: 100 mg Enoxaparin Sodium (Lovenox -) 40 mg SQ DAILY [facility] Last Admin: 10/20/16 09:54 Dose: 40 mg Glimepiride (Amaryl -) 4 mg PO DAILY@0700 [facility] Last Admin: 10/20/16 06:09 Dose: 4 mg Sodium Chloride (Normal Saline -) 1,000 mls @ 100 mls/hr IV ASDIR [facility] Last Admin: 10/20/16 14:03 Dose: 100 mls/hr Ceftriaxone Sodium 1 gm/ (Dextrose) 50 mls @ 100 mls/hr IVPB DAILY [facility] Last Admin: 10/20/16 09:49 Dose: 100 mls/hr Insulin Aspart (Novolog Vial Sliding Scale -) 0 vial SQ ACHS [place] PRN Reason: Protocol Last Admin: 10/20/16 11:23 Dose: Not Given Lactobacillus Acidophilus (Bacid -) 1 tab PO DAILY [facility] Last Admin: 10/20/16 09:50 Dose: 1 tab Metronidazole (Flagyl -) 500 mg PO TID [facility] Last Admin: 10/20/16 15:13 Dose: 500 mg Ondansetron HCl (Zofran Injection) 4 mg IVPB Q6H PRN PRN Reason: NAUSEA Last Admin: 10/20/16 06:18 Dose: 4 mg Oxycodone HCl (Roxicodone -) 5 mg PO Q4H PRN PRN Reason: PAIN LEVEL 6-10 Last Admin: 10/20/16 06:11 Dose: 5 mg Ranitidine HCl (Zantac -) 150 mg PO BID [facility] Last Admin: 10/20/16 09:50 Dose: 150 mg Valsartan (Diovan -) 320 mg PO DAILY [facility] Last Admin: 10/20/16 09:49 Dose: 320 mg - Objective Vital Signs: Vital Signs Temperature 98.5 F 10/20/16 10:00 Pulse Rate 64 10/20/16 10:00 Respiratory Rate 18 10/20/16 10:00 Blood Pressure 153/75 10/20/16 10:00 O2 Sat by Pulse Oximetry (%) 97 10/20/16 09:00 Constitutional: Yes: Calm Eyes: Yes: Conjunctiva Clear HENT: Yes: Atraumatic Cardiovascular: Yes: S1, S2 Respiratory: Yes: CTA Bilaterally Gastrointestinal: Yes: Soft Genitourinary: Yes: WNL Musculoskeletal: Yes: WNL Edema: No Neurological: Yes: Oriented Psychiatric: Yes: Oriented Labs: CBC, BMP 10/20/16 07:35 10/20/16 07:30 INR, PTT INR 1.06 (0.82-1.09) 10/18/16 14:50 Problem List - Problems (1) Gastroenteritis Code(s): K52.9 - NONINFECTIVE GASTROENTERITIS AND COLITIS, UNSPECIFIED (2) Hyponatremia Code(s): E87.1 - HYPO-OSMOLALITY AND HYPONATREMIA (3) Abdominal pain Code(s): R10.9 - UNSPECIFIED ABDOMINAL PAIN (4) Diarrhea Code(s): R19.7 - DIARRHEA, UNSPECIFIED (5) HTN (hypertension) Code(s): I10 - ESSENTIAL (PRIMARY) HYPERTENSION Assessment/Plan Current Medications Generic Name Dose Route Start Last Admin Trade Name Freq PRN Reason Stop Dose Admin Acetaminophen 650 mg 10/18/16 16:50 10/19/16 23:16 Tylenol - PO 650 mg Q4H PRN Administration FEVER OR PAIN Acetaminophen 325 mg 10/18/16 20:18 10/20/16 06:11 Tylenol - PO 10/21/16 20:17 325 mg Q4H PRN Administration PAIN Acetaminophen/Butalbital/Caffeine 1 tablet 10/20/16 10:21 10/20/16 15:15 Fioricet - PO 1 tablet Q6H PRN Administration HEADACHE Atorvastatin Calcium 20 mg 10/18/16 22:00 10/19/16 21:38 Lipitor - PO 20 mg HS [place] Administration Carbamazepine 100 mg 10/18/16 22:00 10/20/16 09:47 Tegretol - PO 100 mg BID [place] Administration Enoxaparin Sodium 40 mg 10/19/16 10:00 10/20/16 09:54 Lovenox - SQ 40 mg DAILY [place] Administration Glimepiride 4 mg 10/19/16 07:00 10/20/16 06:09 Amaryl - PO 4 mg DAILY@0700 [place] Administration Sodium Chloride 1,000 mls @ 100 mls/hr 10/18/16 17:00 10/20/16 14:03 Normal Saline - IV 100 mls/hr ASDIR [place] Administration Ceftriaxone Sodium 1 gm/ 50 mls @ 100 mls/hr 10/19/16 10:00 10/20/16 09:49 Dextrose IVPB 100 mls/hr DAILY [place] Administration Insulin Aspart 0 vial 10/18/16 22:00 10/20/16 11:23 Novolog Vial Sliding Scale - SQ Not Given ACHS [facility] Protocol Lactobacillus Acidophilus 1 tab 10/19/16 10:00 10/20/16 09:50 Bacid - PO 1 tab DAILY [place] Administration Metronidazole 500 mg 10/20/16 14:15 10/20/16 15:13 Flagyl - PO 500 mg TID [place] Administration Ondansetron HCl 4 mg 10/18/16 16:50 10/20/16 06:18 Zofran Injection IVPB 4 mg Q6H PRN Administration NAUSEA Oxycodone HCl 5 mg 10/18/16 20:18 10/20/16 06:11 Roxicodone - PO 5 mg Q4H PRN Administration PAIN LEVEL 6-10 Ranitidine HCl 150 mg 10/18/16 22:00 10/20/16 09:50 Zantac - PO 150 mg BID [place] Administration Valsartan 320 mg 10/19/16 10:00 10/20/16 09:49 Diovan - PO 320 mg DAILY [place] Administration Impression 1. hyponatremia 2. gastroenteritis 3. UTI 4. hyperlipidemia 5. HTN Plan - sodium has stabilized - will keep on fluids until her diarrhea improved - replace potassium - likely etiology of hyponatremia at least in part of salt and volume depletion secondary to GI losses - cont current meds - will follow Dr Almendarez
[2016-10-20] MEDS ORDERED: PT OWN MED DRAWER 7, Y5N ONE (23:03)
[2016-10-20] MEDS: ATORVASTATIN CA 20 MG TABLET (FP) PO SCH (23:21)
[2016-10-21] MEDS ORDERED: SIMETHICONE 40 MG/0.6 ML BOTTLE PO PRN ×3 (03:43→04:09)
[2016-10-21] MEDS ORDERED: SIMETHICONE 40 MG/0.6 ML BOTTLE PO ONE (04:15)
[2016-10-21] MEDS ORDERED: PT OWN MED DRAWER 7, Y5N ONE ×3 (06:06→21:37)
[2016-10-21] MEDS: GLIMEPIRIDE 4 MG TABLET (FP) PO SCH (06:23)
[2016-10-21] MEDS: metroNIDAZOLE 250 MG TABLET PO SCH ×3 (06:23→22:29)
[2016-10-21] MEDS: INSULIN SLIDING SCALE (NOVOLOG) 1 VIAL SQ SCH ×4 (06:25→22:24)
[2016-10-21 07:38] LABS: BASOPHIL 0.5 % (0-2.0); EOSINOPHIL 0.5 % (0-4.5); MCH 32.2 pg (25.7-33.7); MCHC 35.2 g/dl (32.0-36.0); MEAN CELL VOLUME 91.3 fl (80-96); MEAN PLT VOLUME 7.2 fl (7.5-11.1); NEUTROPHILS 48.6 % (42.8-82.8); PLATELET COUNT 289 K/MM3 (134-434); RDW 12.8 % (11.6-15.6); WHITE BLOOD COUNT 7.6 K/mm3 (4.0-10.0)
[2016-10-21 07:54] LABS: ALBUMIN 3.6 g/dl (3.4-5.0); PHOSPHOROUS 2.7 mg/dL (2.5-4.9)
[2016-10-21 07:58] LABS: ALK PHOS 76 U/L (45-117); ANION GAP 9 (8-16); BILIRUBIN,TOTAL 0.3 mg/dL (0.2-1.0); CALCIUM 8.5 mg/dL (8.5-10.1); CO2 25 mmol/L (21-32); CREATININE 0.6 mg/dL (0.55-1.02); GLUCOSE,RANDOM 99 mg/dL (74-106); MAGNESIUM 2.1 mg/dL (1.8-2.4); SGOT/AST 19 U/L (15-37); SGPT/ALT 12 U/L (12-78); TOT PROT 6.5 g/dl (6.4-8.2)
[2016-10-21] MEDS: SODIUM CHLORIDE 1,000 ML IV SCH ×2 (08:04→17:48)
[2016-10-21] MEDS: ACETAMINOPHEN/CAFFEINE/BUTALBITAL 1 TAB PO PRN ×2 (08:46→19:50)
[2016-10-21] MEDS ORDERED: DEXTROSE 5%-WATER - 50 ML IVPB ONE (09:16)
[2016-10-21] MEDS ORDERED: cefTRIAXone SODIUM 1 GM VIAL ONE (09:16)
[2016-10-21] MEDS: LACTOBACILLUS ACIDOPHILUS 1 EACH TAB (FP) PO SCH (09:19)
[2016-10-21] MEDS: RANITIDINE HCL 150 MG TABLET (FP) PO SCH ×2 (09:19→22:29)
[2016-10-21] MEDS: VALSARTAN 160 MG TABLET (UD) PO SCH (09:19)
[2016-10-21] MEDS: carBAMazepine 100 MG TAB.CHEW PO SCH ×2 (09:20→22:29)
[2016-10-21] MEDS: ENOXAPARIN NA (PORCINE) 40 MG/0.4 ML DISP.SYRIN SQ SCH (09:20)
[2016-10-21] MEDS: CEFTRIAXONE 1 GM in DEXTROSE 5%-WATER - 50 ML IVPB SCH (09:21)
--- NOTE | 2016-10-21 10:05 | PN ---
Progress Note (short form) - Note Progress Note: Neurology History of Present Illness: 81 year old female here complaining of pain and weakness. She says it began last where she felt weak and dizzy. She says it was both vertiginous and lightheadedness, she has history of vertigo. She says she then developed abdominal pain with nausea, vomiting, and diarrhea. While admitted she has been having migraine headaches which occur episodically. There can be associated photophobia and states Fioricet is helpful for her. Medication was started and given this AM. She has underlying HTN and may also have tension headache associated. Of note, she is being treated for Trigeminial Neuralgia with Tegretol. She is also being treated for UTI with Ceftriaxone. C/O stomach discomfort and diarrhea but may be from Abx, deferred to PCP. Patient well appearing and comfortable. Home Medications - Allergies Allergies/Adverse Reactions: Allergies Allergy/AdvReac Type Severity Reaction Status Date / Time No Known Allergies Allergy Verified 10/18/16 12:53 Home Medication List Medication Instructions Recorded Confirmed Type Atorvastatin Ca [Lipitor] 20 mg PO HS 10/18/16 10/18/16 History Carbamazepine [Tegretol -] 100 mg PO BID 10/18/16 10/18/16 History Glimepiride [Amaryl] 4 mg PO DAILY 10/18/16 10/18/16 History Ranitidine HCl [Zantac] 150 mg PO BID 10/18/16 10/18/16 History Valsartan [Diovan] 320 mg PO DAILY 10/18/16 10/18/16 History Active Medications Generic Name Dose Route Start Last Admin Trade Name Freq PRN Reason Stop Dose Admin Acetaminophen 650 mg 10/18/16 16:50 10/19/16 23:16 Tylenol - PO 650 mg Q4H PRN Administration FEVER OR PAIN Acetaminophen 325 mg 10/18/16 20:18 10/20/16 06:11 Tylenol - PO 10/21/16 20:17 325 mg Q4H PRN Administration PAIN Atorvastatin Calcium 20 mg 10/18/16 22:00 10/19/16 21:38 Lipitor - PO 20 mg HS [place] Administration Carbamazepine 100 mg 10/18/16 22:00 10/20/16 09:47 Tegretol - PO 100 mg BID [place] Administration Enoxaparin Sodium 40 mg 10/19/16 10:00 10/20/16 09:54 Lovenox - SQ 40 mg DAILY [place] Administration Glimepiride 4 mg 10/19/16 07:00 10/20/16 06:09 Amaryl - PO 4 mg DAILY@0700 [place] Administration Sodium Chloride 1,000 mls @ 100 mls/hr 10/18/16 17:00 10/19/16 16:15 Normal Saline - IV 100 mls/hr ASDIR [place] Administration Ceftriaxone Sodium 1 gm/ 50 mls @ 100 mls/hr 10/19/16 10:00 10/20/16 09:49 Dextrose IVPB 100 mls/hr DAILY [place] Administration Insulin Aspart 0 vial 10/18/16 22:00 10/20/16 06:10 Novolog Vial Sliding Scale - SQ Not Given ACHS [facility] Protocol Lactobacillus Acidophilus 1 tab 10/19/16 10:00 10/20/16 09:50 Bacid - PO 1 tab DAILY [place] Administration Ondansetron HCl 4 mg 10/18/16 16:50 10/20/16 06:18 Zofran Injection IVPB 4 mg Q6H PRN Administration NAUSEA Oxycodone HCl 5 mg 10/18/16 20:18 10/20/16 06:11 Roxicodone - PO 5 mg Q4H PRN Administration PAIN LEVEL 6-10 Ranitidine HCl 150 mg 10/18/16 22:00 10/20/16 09:50 Zantac - PO 150 mg BID [place] Administration Valsartan 320 mg 10/19/16 10:00 10/20/16 09:49 Diovan - PO 320 mg DAILY [place] Administration Physical Examination Vital Signs: Last Vital Signs Temp Pulse Resp BP Pulse Ox 98.7 F 67 20 150/60 98 10/21/16 08:50 10/21/16 08:50 10/21/16 09:00 10/21/16 08:50 10/21/16 09:00 Constitutional: Yes: Well Nourished, No Distress, Calm Eyes: Yes: Conjunctiva Clear, EOM Intact, PERRL HENT: Yes: Atraumatic, Normocephalic Cardiovascular: Yes: Regular Rate and Rhythm. No: Gallop, Murmur, Rub Respiratory: Yes: Regular, CTA Bilaterally. No: Rales, Rhonchi, Wheezes Gastrointestinal: Yes: Normal Bowel Sounds, Soft, Tenderness (suprapubic, minimal). No: Distention Extremities: Yes: WNL Edema: No Neuro: Awake, alert, conversive, no confusion, CN intact and no aphasia, Strength equal b/l, sensory intact to tactile stimulation, finger to nose normal , gait deferred CBCD WBC 5.7 K/mm3 (4.0-10.0) D 10/20/16 07:35 RBC 4.14 M/mm3 (3.60-5.2) 10/20/16 07:35 Hgb 13.1 GM/dL (10.7-15.3) 10/20/16 07:35 Hct 38.0 % (32.4-45.2) 10/20/16 07:35 MCV 91.9 fl (80-96) 10/20/16 07:35 MCHC 34.5 g/dl (32.0-36.0) 10/20/16 07:35 RDW 12.4 % (11.6-15.6) 10/20/16 07:35 Plt Count 207 K/MM3 (134-434) 10/20/16 07:35 MPV 7.9 fl (7.5-11.1) D 10/20/16 07:35 CMP Sodium 138 mmol/L (136-145) 10/20/16 07:30 Potassium 3.3 mmol/L (3.5-5.1) L 10/20/16 07:30 Chloride 104 mmol/L (98-107) 10/20/16 07:30 Carbon Dioxide 26 mmol/L (21-32) 10/20/16 07:30 Anion Gap 8 (8-16) 10/20/16 07:30 BUN 7 mg/dL (7-18) D 10/20/16 07:30 Creatinine 0.6 mg/dL (0.55-1.02) 10/20/16 07:30 Creat Clearance w eGFR > 60 (>60) 10/18/16 14:50 Random Glucose 111 mg/dL (74-106) H 10/20/16 07:30 Calcium 8.5 mg/dL (8.5-10.1) 10/20/16 07:30 Total Bilirubin 0.7 mg/dL (0.2-1.0) D 10/18/16 14:50 AST 13 U/L (15-37) L 10/18/16 14:50 ALT 15 U/L (12-78) D 10/18/16 14:50 Alkaline Phosphatase 93 U/L (45-117) D 10/18/16 14:50 Total Protein 7.2 g/dl (6.4-8.2) D 10/18/16 14:50 Albumin 3.9 g/dl (3.4-5.0) D 10/18/16 14:50 CARDIAC ENZYMES Creatine Kinase 45 IU/L (26-192) 10/18/16 14:50 Troponin I 0.04 ng/ml (0.00-0.05) 10/18/16 14:50 Imaging - Results Chest X-ray: Image Reviewed Plan 81 year old female here complaining of pain and weakness. She says it began last where she felt weak and dizzy. She says it was both vertiginous and lightheadedness, she has history of vertigo. She says she then developed abdominal pain with nausea, vomiting, and diarrhea. While admitted she has been having migraine headaches which occur episodically. There can be associated photophobia and states Fioricet is helpful for her. This AM, headache was improved but still with some head pain. She has underlying HTN and may also have tension headache associated. Of note, she is being treated for Trigeminial Neuralgia with Tegretol. She is also being treated for UTI with Ceftriaxone. Added Fioricet to regiment, PRN, given this AM with relief Continue Ceftriaxone for UTI Continue hydration for gastro, dehydration can precipitate headache Continue Diovan for HTN, goal BP < 140/90 Will hold off on imaging Tegretol for Trigeminal neuralgia
[2016-10-21] MEDS: MAG HYDROX/AL HYDROX/SIMETH 30 ML UNIT-DOSE CUP PO PRN (12:47)
--- NOTE | 2016-10-21 16:41 | PN ---
Progress Note, Physician Chief Complaint: Ms Seaman says she is feeling better today. Pain resolved but still with diarrhea. No cp, sob, n/v. - Current Medication List Current Medications: Active Medications Acetaminophen (Tylenol -) 650 mg PO Q4H PRN PRN Reason: FEVER OR PAIN Last Admin: 10/19/16 23:16 Dose: 650 mg Acetaminophen (Tylenol -) 325 mg PO Q4H PRN PRN Reason: PAIN Stop: 10/21/16 20:17 Last Admin: 10/20/16 06:11 Dose: 325 mg Acetaminophen/Butalbital/Caffeine (Fioricet -) 1 tablet PO Q6H PRN PRN Reason: HEADACHE Last Admin: 10/21/16 08:46 Dose: 1 tablet Al Hydroxide/Mg Hydroxide (Mylanta Oral Suspension -) 30 ml PO Q6H PRN PRN Reason: DYSPEPSIA Last Admin: 10/21/16 12:47 Dose: 30 ml Atorvastatin Calcium (Lipitor -) 20 mg PO HS [facility] Last Admin: 10/20/16 23:21 Dose: 20 mg Carbamazepine (Tegretol -) 100 mg PO BID [facility] Last Admin: 10/21/16 09:20 Dose: 100 mg Enoxaparin Sodium (Lovenox -) 40 mg SQ DAILY [facility] Last Admin: 10/21/16 09:20 Dose: 40 mg Glimepiride (Amaryl -) 4 mg PO DAILY@0700 [facility] Last Admin: 10/21/16 06:23 Dose: 4 mg Sodium Chloride (Normal Saline -) 1,000 mls @ 100 mls/hr IV ASDIR [facility] Last Admin: 10/21/16 08:04 Dose: 100 mls/hr Ceftriaxone Sodium 1 gm/ (Dextrose) 50 mls @ 100 mls/hr IVPB DAILY [facility] Last Admin: 10/21/16 09:21 Dose: 100 mls/hr Insulin Aspart (Novolog Vial Sliding Scale -) 0 vial SQ ACHS [facility] PRN Reason: Protocol Last Admin: 10/21/16 10:31 Dose: Not Given Lactobacillus Acidophilus (Bacid -) 1 tab PO DAILY [facility] Last Admin: 10/21/16 09:19 Dose: 1 tab Metronidazole (Flagyl -) 500 mg PO TID [facility] Last Admin: 10/21/16 15:00 Dose: 500 mg Ondansetron HCl (Zofran Injection) 4 mg IVPB Q6H PRN PRN Reason: NAUSEA Last Admin: 10/20/16 06:18 Dose: 4 mg Oxycodone HCl (Roxicodone -) 5 mg PO Q4H PRN PRN Reason: PAIN LEVEL 6-10 Last Admin: 10/20/16 06:11 Dose: 5 mg Ranitidine HCl (Zantac -) 150 mg PO BID [facility] Last Admin: 10/21/16 09:19 Dose: 150 mg Valsartan (Diovan -) 320 mg PO DAILY [facility] Last Admin: 10/21/16 09:19 Dose: 320 mg - Objective Vital Signs: Vital Signs Temperature 36.8 C 10/21/16 14:00 Pulse Rate 60 10/21/16 14:00 Respiratory Rate 20 10/21/16 14:00 Blood Pressure 149/66 10/21/16 14:00 O2 Sat by Pulse Oximetry (%) 98 10/21/16 09:00 Constitutional: Yes: Well Nourished, No Distress, Calm Cardiovascular: Yes: Regular Rate and Rhythm. No: Gallop, Murmur, Rub Respiratory: Yes: Regular, CTA Bilaterally. No: Rales, Rhonchi, Wheezes Gastrointestinal: Yes: Normal Bowel Sounds, Soft. No: Distention, Tenderness Extremities: Yes: WNL Edema: No Labs: CBC, BMP 10/21/16 06:15 10/21/16 06:15 INR, PTT INR 1.06 (0.82-1.09) 10/18/16 14:50 Problem List - Problems (1) UTI (urinary tract infection) Code(s): N39.0 - URINARY TRACT INFECTION, SITE NOT SPECIFIED Qualifiers: Urinary tract infection type: site unspecified Hematuria presence: with hematuria Qualified Code(s): N39.0 - Urinary tract infection, site not specified; R31.9 - Hematuria, unspecified (2) Hyponatremia Code(s): E87.1 - HYPO-OSMOLALITY AND HYPONATREMIA (3) Gastroenteritis Code(s): K52.9 - NONINFECTIVE GASTROENTERITIS AND COLITIS, UNSPECIFIED (4) Diabetes Code(s): E11.9 - TYPE 2 DIABETES MELLITUS WITHOUT COMPLICATIONS (5) HTN (hypertension) Code(s): I10 - ESSENTIAL (PRIMARY) HYPERTENSION (6) Migraine Code(s): G43.909 - MIGRAINE, UNSP, NOT INTRACTABLE, WITHOUT STATUS MIGRAINOSUS (7) Trigeminal neuralgia Code(s): G50.0 - TRIGEMINAL NEURALGIA Assessment/Plan (1) UTI (urinary tract infection) Assessment/Plan: -continue rocephin day 4/5 -urine cultures sensitive Code(s): N39.0 - URINARY TRACT INFECTION, SITE NOT SPECIFIED Qualifiers: Urinary tract infection type: site unspecified Hematuria presence: with hematuria Qualified Code(s): N39.0 - Urinary tract infection, site not specified; R31.9 - Hematuria, unspecified (2) Hyponatremia Assessment/Plan: -secondary to dehydration -nephrology following -improved with IVF Code(s): E87.1 - HYPO-OSMOLALITY AND HYPONATREMIA (3) Gastroenteritis Assessment/Plan: -CT scan unchanged -c. diff negative -continue empiric flagyl currently until cultures result -GI consult Code(s): K52.9 - NONINFECTIVE GASTROENTERITIS AND COLITIS, UNSPECIFIED (4) Diabetes Assessment/Plan: -continue home medications -advance diet to diabetic Code(s): E11.9 - TYPE 2 DIABETES MELLITUS WITHOUT COMPLICATIONS (5) HTN (hypertension) Assessment/Plan: -continue diovan Code(s): I10 - ESSENTIAL (PRIMARY) HYPERTENSION (6) Migraine -appreciate neurology assistance -tracy added (7) Trigeminal neuralgia -patient describes symptoms of trigeminal neuralgia on the right side -continue tegretol
--- NOTE | 2016-10-21 17:35 | CON.GI ---
Consult Consult Specialty:: Gastroenterology Referred by:: Dr. Ferro Reason for Consultation:: Diarrhea - History of Present Illness Chief Complaint: Diarrhea History of Present Illness: 81F is admitted with UTI but describes having frequent and urgent bowel movements for the past 4 days. She has also been having lower abdominal cramps and nausea. She describes her stools as being semisolid to formed. She denies any recent preceding foreign travel or antibiotic usage. She has a chronic h/o erratic bowel habits. Her last colonoscopy on 10/25/11 revealed mild left colon diverticulosis. EGD on 08/01/12 revealed GERD above a modest hiatal hernia. He was referred for EUS to Dr Ayo Sue last year after MRI suggested a pancreatic head neoplasm. The EUS failed to reveal any pancreatic neoplasms. 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) Cardio/Vascular: Yes: HTN, Hyperlipdemia Gastrointestinal: Yes: Diverticulosis, GERD, Hiatal Hernia, Other (abdominal panniculitis 2016) Endocrine: Yes: Diabetes Mellitus - Past Surgical History Past Surgical History: Yes: Hysterectomy, Tonsillectomy, Tubal Ligation - Alcohol/Substance Use Hx Alcohol Use: Yes (Rare) History of Substance Use: reports: None - Smoking History Smoking history: Never smoked Have you smoked in the past 12 months: No - Social History Usual Living Arrangement: Alone ADL: Independent Occupation: retired [employer] employee Place of : [facility] History of Recent Travel: No Home Medications - Allergies Allergies/Adverse Reactions: Allergies Allergy/AdvReac Type Severity Reaction Status Date / Time No Known Allergies Allergy Verified 10/18/16 12:53 - Home Medications Home Medications: Ambulatory Orders Atorvastatin Ca [Lipitor] 20 mg PO HS 10/18/16 Carbamazepine [Tegretol -] 100 mg PO BID 10/18/16 Glimepiride [Amaryl] 4 mg PO DAILY 10/18/16 Ranitidine HCl [Zantac] 150 mg PO BID 10/18/16 Valsartan [Diovan] 320 mg PO DAILY 10/18/16 Family Disease History - Family Disease History Family Disease History: CA: Mother ( colon cancer), Other: Father ( of cerebral hemorrhage), Sister (alzheimers), Son (migraines) Review of Systems - Review of Systems Constitutional: reports: Lethargy Eyes: reports: No Symptoms HENT: reports: No Symptoms Neck: reports: No Symptoms Cardiovascular: reports: No Symptoms Respiratory: reports: No Symptoms Gastrointestinal: reports: Abdominal Pain, Diarrhea, Rectal Bleeding Genitourinary: reports: Burning, Frequency Endocrine: reports: No Symptoms Physical Exam-GI Vital Signs: Vital Signs Temperature 98.2 F 10/21/16 14:00 Pulse Rate 60 10/21/16 14:00 Respiratory Rate 20 10/21/16 14:00 Blood Pressure 149/66 10/21/16 14:00 O2 Sat by Pulse Oximetry (%) 98 10/21/16 09:00 CBC,CMP WBC 7.6 K/mm3 (4.0-10.0) D 10/21/16 06:15 RBC 3.95 M/mm3 (3.60-5.2) 10/21/16 06:15 Hgb 12.7 GM/dL (10.7-15.3) 10/21/16 06:15 Hct 36.1 % (32.4-45.2) 10/21/16 06:15 MCV 91.3 fl (80-96) 10/21/16 06:15 MCH 32.2 pg (25.7-33.7) 10/21/16 06:15 MCHC 35.2 g/dl (32.0-36.0) 10/21/16 06:15 RDW 12.8 % (11.6-15.6) 10/21/16 06:15 Plt Count 289 K/MM3 (134-434) D 10/21/16 06:15 MPV 7.2 fl (7.5-11.1) L 10/21/16 06:15 Neutrophils % 48.6 % (42.8-82.8) 10/21/16 06:15 Lymphocytes % 43.6 % (8-40) H D 10/21/16 06:15 Monocytes % 6.8 % (3.8-10.2) 10/21/16 06:15 Eosinophils % 0.5 % (0-4.5) 10/21/16 06:15 Basophils % 0.5 % (0-2.0) 10/21/16 06:15 Sodium 138 mmol/L (136-145) 10/21/16 06:15 Potassium 3.5 mmol/L (3.5-5.1) 10/21/16 06:15 Chloride 104 mmol/L (98-107) 10/21/16 06:15 Carbon Dioxide 25 mmol/L (21-32) 10/21/16 06:15 Anion Gap 9 (8-16) 10/21/16 06:15 BUN 5 mg/dL (7-18) L D 10/21/16 06:15 Creatinine 0.6 mg/dL (0.55-1.02) 10/21/16 06:15 Creat Clearance w eGFR > 60 (>60) 10/21/16 06:15 POC Glucometer 119 UNITS (()) 10/21/16 10:30 Random Glucose 99 mg/dL (74-106) 10/21/16 06:15 Serum Osmolality 269 mosm/kg (278-305) L 10/18/16 18:30 Calcium 8.5 mg/dL (8.5-10.1) 10/21/16 06:15 Phosphorus 2.7 mg/dL (2.5-4.9) 10/21/16 06:15 Magnesium 2.1 mg/dL (1.8-2.4) 10/21/16 06:15 Total Bilirubin 0.3 mg/dL (0.2-1.0) D 10/21/16 06:15 AST 19 U/L (15-37) D 10/21/16 06:15 ALT 12 U/L (12-78) 10/21/16 06:15 Alkaline Phosphatase 76 U/L (45-117) 10/21/16 06:15 Creatine Kinase 45 IU/L (26-192) 10/18/16 14:50 Troponin I 0.04 ng/ml (0.00-0.05) 10/18/16 14:50 Total Protein 6.5 g/dl (6.4-8.2) 10/21/16 06:15 Albumin 3.6 g/dl (3.4-5.0) 10/21/16 06:15 Lipase 46 U/L (73-393) L 10/18/16 14:50 Current Medications Generic Name Dose Route Start Last Admin Trade Name Freq PRN Reason Stop Dose Admin Acetaminophen 650 mg 10/18/16 16:50 10/19/16 23:16 Tylenol - PO 650 mg Q4H PRN Administration FEVER OR PAIN Acetaminophen 325 mg 10/18/16 20:18 10/20/16 06:11 Tylenol - PO 10/21/16 20:17 325 mg Q4H PRN Administration PAIN Acetaminophen/Butalbital/Caffeine 1 tablet 10/20/16 10:21 10/21/16 08:46 Fioricet - PO 1 tablet Q6H PRN Administration HEADACHE Al Hydroxide/Mg Hydroxide 30 ml 10/21/16 12:05 10/21/16 12:47 Mylanta Oral Suspension - PO 30 ml Q6H PRN Administration DYSPEPSIA Atorvastatin Calcium 20 mg 10/18/16 22:00 10/20/16 23:21 Lipitor - PO 20 mg HS [place] Administration Carbamazepine 100 mg 10/18/16 22:00 10/21/16 09:20 Tegretol - PO 100 mg BID [place] Administration Enoxaparin Sodium 40 mg 10/19/16 10:00 10/21/16 09:20 Lovenox - SQ 40 mg DAILY [place] Administration Glimepiride 4 mg 10/19/16 07:00 10/21/16 06:23 Amaryl - PO 4 mg DAILY@0700 [place] Administration Sodium Chloride 1,000 mls @ 100 mls/hr 10/18/16 17:00 10/21/16 08:04 Normal Saline - IV 100 mls/hr ASDIR [place] Administration Ceftriaxone Sodium 1 gm/ 50 mls @ 100 mls/hr 10/19/16 10:00 10/21/16 09:21 Dextrose IVPB 100 mls/hr DAILY [place] Administration Insulin Aspart 0 vial 10/18/16 22:00 10/21/16 10:31 Novolog Vial Sliding Scale - SQ Not Given ACHS [facility] Protocol Lactobacillus Acidophilus 1 tab 10/19/16 10:00 10/21/16 09:19 Bacid - PO 1 tab DAILY [facility] Administration Metronidazole 500 mg 10/20/16 14:15 10/21/16 15:00 Flagyl - PO 500 mg TID [place] Administration Ondansetron HCl 4 mg 10/18/16 16:50 10/20/16 06:18 Zofran Injection IVPB 4 mg Q6H PRN Administration NAUSEA Oxycodone HCl 5 mg 10/18/16 20:18 10/20/16 06:11 Roxicodone - PO 5 mg Q4H PRN Administration PAIN LEVEL 6-10 Ranitidine HCl 150 mg 10/18/16 22:00 10/21/16 09:19 Zantac - PO 150 mg BID [place] Administration Valsartan 320 mg 10/19/16 10:00 10/21/16 09:19 Diovan - PO 320 mg DAILY [place] Administration Constitutional: Yes: Well Nourished Eyes: Yes: Conjunctiva Clear HENT: Yes: Normocephalic Neck: Yes: Supple Cardiovascular: Yes: Regular Rate and Rhythm Respiratory: Yes: CTA Bilaterally Gastrointestinal Inspection: Yes: Scars (healed BTL umbilical inicision) ...Auscultate: Yes: Hyperactive Bowel Sounds ...Palpate: Yes: Soft, Other (nontender) ...Rectal Exam: Yes: Guaiac Negative, Hemorrhoids/External Labs: CBC, BMP 10/21/16 06:15 10/21/16 06:15 INR, PTT INR 1.06 (0.82-1.09) 10/18/16 14:50 Imaging - Results Cat Scan: Report Reviewed (Caroline Garcia Name: JULIA CABRERA DEPARTMENT OF RADIOLOGY Phys: Eagle Ferro MD : 1935 Age: 81 Sex: F [facility] Acct: [id number] Loc: [address] Exam Date: 10/20/16 Status: [place] [address] Unit Number: [id number] EXAM#: TYPE/EXAM: RESULT: [id number] CT/ABDOMEN PELVIS CT W/O CONTR EXAM: CT ABDOMEN AND PELVIS WITHOUT INTRAVENOUS CONTRAST. INDICATION: Evaluate colitis. TECHNIQUE: Contiguous axial CT images of the abdomen and pelvis were obtained from the lung bases through the pubic symphysis without intravenous contrast. Oral contrast was administered. COMPARISON: 09/17/2015 CT abdomen/pelvis. Correlation made to the 09/29/2015 MRI abdomen. FINDINGS: Evaluation of the solid viscera and vessels is limited without IV contrast. The 7 mm pleural-based nodule in the left lower lobe, the 4 mm pleural-based nodule in the lateral segment of the right middle lobe, the 4 mm right lower lobe nodule and the 6-7 mm pleural-based nodule in the right lung base appear unchanged in size. The heart is normal in size. The liver is normal in size with that least moderate hepatic steatosis with geographic areas of sparing in the left hepatic lobe and gallbladder fossa. Hyperdense contents layering dependently in the gallbladder reflect some combination of gallstones and/or sludge. The gallbladder is not pathologically distended. The common bile duct is not dilated. There is pancreatic atrophy, overall similar in appearance the prior exam. There is relative fullness of the pancreatic uncinate process with persistent peripancreatic fat stranding adjacent to the head and uncinate process. 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 Nonspecific subcentimeter peripancreatic, monie hepatic and portacaval lymph nodes are grossly similar in size to the prior exam. There is no mass in the adrenal glands. There is symmetric mild atrophy of both kidneys. There are no renal or ureteral calculi. There is no hydroureteronephrosis. The abdominal aorta is of normal caliber. There is calcific atherosclerosis along the infrarenal abdominal aorta, and takeoff of the right renal artery. There is no evidence of intestinal obstruction. There is a normal-appearing appendix in the right lower quadrant. The rectum, sigmoid and descending colon are underdistended, which somewhat limits evaluation for wall thickening. Within these limitations, there is no definite colon or small bowel. There are diverticula scattered along the descending and sigmoid colon with no evidence of acute diverticulitis. There is no free intraperitoneal air. There is a small volume of nonspecific free fluid layering dependently in the pelvis adjacent to distal small bowel loops in the right pelvis. The uterus is surgically absent. The urinary bladder is underdistended, which limits evaluation. There are no pathologically enlarged pelvic sidewall lymph nodes by size criteria. There is no acute fracture in the visualized osseous structures. Degenerative changes are noted in lumbar spine, sacroiliac joints and hips. There are several nonspecific gas locules within the subcutaneous fat overlying the left lower quadrant of the abdomen. Ovoid lesion within the skin and subcutaneous fat of the right gluteal region measuring 1.9 x 3.8 cm is unchanged in size since the prior CT. This is nonspecific but may represent an epidermal cyst. IMPRESSION: 1. No definite theo colonic wall thickening to suggest active colitis. Very small volume of free fluid layering in the pelvis is nonspecific, but could be the sequela of recent enterocolitis in the appropriate clinical setting. 2. Pancreatic atrophy with relative fullness of the uncinate process and persistent peripancreatic fat stranding adjacent to the head and uncinate process. Underlying uncinate process neoplasm is not excluded. Please correlate clinically with pancreatic enzymes to assess for active pancreatitis. Please refer to the 09/29/2015 contrast enhanced MRI of the abdomen for recommendations. 3. At least moderate hepatic steatosis. 4. Gallstones and/or sludge layering dependently within the gallbladder. No CT evidence of acute cholecystitis or common bile duct dilatation. 5. Nonspecific pulmonary nodules as described above are unchanged in size compared with 09/17/2015 CT. Reported By: Tierra Last MD 10/21/16899 Technologist: Nathalia Grayson Transcribed Date/Time: 10/21/16899 [employer] Specialist: Tierra Last MD Printed Date/Time: [ rep prt dt last] [ rep prt tm last] By: [ rep prt user last] Signed by: Tierra Last Signed on: 21-Oct-2016 09:01) Assessment/Plan I believe that given the semisolid to solid nature of her excrement that Julia is actually having paradoxical diarrhea. The CT contrast will actually help to resolve this. She is due for a repeat colon cancer screening. I will advance her diet. If tolerated and diarrhea resolves then can discharge and pursue colonoscopy as an outpatient. If diarrhea persists then we will do a colonoscopy during this admission. I have already discussed the potential risks of colonoscopy with Julia that include perforation and bleeding. She is in a position to make an informed consent.
[2016-10-21] MEDS: ATORVASTATIN CA 20 MG TABLET (FP) PO SCH (22:29)
[2016-10-22] MEDS: INSULIN SLIDING SCALE (NOVOLOG) 1 VIAL SQ SCH ×4 (06:27→22:48)
[2016-10-22] MEDS: GLIMEPIRIDE 4 MG TABLET (FP) PO SCH (06:28)
[2016-10-22] MEDS: metroNIDAZOLE 250 MG TABLET PO SCH ×2 (06:28→14:17)
[2016-10-22 08:44] LABS: BASOPHIL 0.7 % (0-2.0); EOSINOPHIL 0.9 % (0-4.5); MCH 31.8 pg (25.7-33.7); MCHC 34.4 g/dl (32.0-36.0); MEAN CELL VOLUME 92.7 fl (80-96); MEAN PLT VOLUME 7.6 fl (7.5-11.1); NEUTROPHILS 44.6 % (42.8-82.8); PLATELET COUNT 303 K/MM3 (134-434); WHITE BLOOD COUNT 7.9 K/mm3 (4.0-10.0)
[2016-10-22 09:12] LABS: ANION GAP 10 (8-16); CALCIUM 8.6 mg/dL (8.5-10.1); CO2 26 mmol/L (21-32); CREATININE 0.6 mg/dL (0.55-1.02); GLUCOSE,RANDOM 98 mg/dL (74-106); MAGNESIUM 2.2 mg/dL (1.8-2.4); PHOSPHOROUS 2.8 mg/dL (2.5-4.9)
--- NOTE | 2016-10-22 09:22 | PN ---
Progress Note, Physician History of Present Illness: Having multiple bowel movements still, but notes that it is now small "russ" instead of liquid. - Current Medication List Current Medications: Active Medications Acetaminophen (Tylenol -) 650 mg PO Q4H PRN PRN Reason: FEVER OR PAIN Last Admin: 10/19/16 23:16 Dose: 650 mg Acetaminophen/Butalbital/Caffeine (Fioricet -) 1 tablet PO Q6H PRN PRN Reason: HEADACHE Last Admin: 10/21/16 19:50 Dose: 1 tablet Al Hydroxide/Mg Hydroxide (Mylanta Oral Suspension -) 30 ml PO Q6H PRN PRN Reason: DYSPEPSIA Last Admin: 10/21/16 12:47 Dose: 30 ml Atorvastatin Calcium (Lipitor -) 20 mg PO HS [facility] Last Admin: 10/21/16 22:29 Dose: 20 mg Carbamazepine (Tegretol -) 100 mg PO BID [facility] Last Admin: 10/21/16 22:29 Dose: 100 mg Enoxaparin Sodium (Lovenox -) 40 mg SQ DAILY [facility] Last Admin: 10/21/16 09:20 Dose: 40 mg Glimepiride (Amaryl -) 4 mg PO DAILY@0700 [facility] Last Admin: 10/22/16 06:28 Dose: 4 mg Sodium Chloride (Normal Saline -) 1,000 mls @ 100 mls/hr IV ASDIR [facility] Last Admin: 10/21/16 17:48 Dose: Not Given Ceftriaxone Sodium 1 gm/ (Dextrose) 50 mls @ 100 mls/hr IVPB DAILY [facility] Last Admin: 10/21/16 09:21 Dose: 100 mls/hr Insulin Aspart (Novolog Vial Sliding Scale -) 0 vial SQ ACHS [facility] PRN Reason: Protocol Last Admin: 10/22/16 06:27 Dose: Not Given Lactobacillus Acidophilus (Bacid -) 1 tab PO DAILY [facility] Last Admin: 10/21/16 09:19 Dose: 1 tab Metronidazole (Flagyl -) 500 mg PO TID [facility] Last Admin: 10/22/16 06:28 Dose: 500 mg Ondansetron HCl (Zofran Injection) 4 mg IVPB Q6H PRN PRN Reason: NAUSEA Last Admin: 10/20/16 06:18 Dose: 4 mg Oxycodone HCl (Roxicodone -) 5 mg PO Q4H PRN PRN Reason: PAIN LEVEL 6-10 Last Admin: 10/20/16 06:11 Dose: 5 mg Ranitidine HCl (Zantac -) 150 mg PO BID [facility] Last Admin: 10/21/16 22:29 Dose: 150 mg Valsartan (Diovan -) 320 mg PO DAILY [facility] Last Admin: 10/21/16 09:19 Dose: 320 mg - Objective Vital Signs: Vital Signs Temperature 97.4 F L 10/22/16 07:49 Pulse Rate 54 L 10/22/16 07:49 Respiratory Rate 20 10/22/16 07:49 Blood Pressure 187/73 10/22/16 07:49 O2 Sat by Pulse Oximetry (%) 98 10/21/16 21:00 Constitutional: Yes: No Distress, Calm HENT: Yes: Atraumatic, Normocephalic Cardiovascular: Yes: Regular Rate and Rhythm, S1, S2. No: Murmur Respiratory: Yes: Regular, CTA Bilaterally. No: Rales, Rhonchi, Wheezes Gastrointestinal: Yes: Normal Bowel Sounds, Soft, Distention, Tenderness (mild, diffusely, greater in lower quadrants, no guarding) Edema: No Neurological: Yes: Alert, Oriented Labs: CBC, BMP 10/22/16 07:00 10/22/16 07:00 INR, PTT INR 1.06 (0.82-1.09) 10/18/16 14:50 Assessment/Plan Current Active Problems Gastroenteritis (Acute) Hyponatremia (Acute) Migraine (Acute) Trigeminal neuralgia (Acute) UTI (urinary tract infection) (Acute) Paradoxical diarrhea -cont curretn treatment -bowel movements may improve with CT scan oral contrast that she received 2 days ago
[2016-10-22] MEDS ORDERED: cefTRIAXone SODIUM 1 GM VIAL ONE (10:15)
[2016-10-22] MEDS ORDERED: DEXTROSE 5%-WATER - 50 ML IVPB ONE (10:15)
[2016-10-22] MEDS ORDERED: POTASSIUM CHLORIDE TABS 20 MEQ TABLET.ER (FP) PO ONE (10:24)
[2016-10-22] MEDS: carBAMazepine 100 MG TAB.CHEW PO SCH ×2 (10:37→22:45)
[2016-10-22] MEDS: oxyCODONE HCL 5 MG TABLET PO PRN ×2 (10:37→17:43)
[2016-10-22] MEDS: ENOXAPARIN NA (PORCINE) 40 MG/0.4 ML DISP.SYRIN SQ SCH (10:38)
[2016-10-22] MEDS: LACTOBACILLUS ACIDOPHILUS 1 EACH TAB (FP) PO SCH (10:38)
[2016-10-22] MEDS: VALSARTAN 160 MG TABLET (UD) PO SCH (10:38)
[2016-10-22] MEDS: RANITIDINE HCL 150 MG TABLET (FP) PO SCH ×2 (10:38→22:43)
[2016-10-22] MEDS: ACETAMINOPHEN 325 MG TABLET (FP) PO PRN ×2 (10:38→17:43)
[2016-10-22] MEDS: CEFTRIAXONE 1 GM in DEXTROSE 5%-WATER - 50 ML IVPB SCH (10:38)
[2016-10-22] MEDS: SODIUM CHLORIDE 1,000 ML IV SCH (14:17)
--- NOTE | 2016-10-22 17:05 | PN ---
GI Progress Note Subjective: Gi NOte: Just had a BM which reveals formed stool and confirms paradoxical diarrhea. She wants to defer colonoscopy to outpatient workup and has an upcoming appt with me. - Objective Vital Signs: Vital Signs Temperature 98.7 F 10/22/16 15:32 Pulse Rate 52 L 10/22/16 15:32 Respiratory Rate 18 10/22/16 15:32 Blood Pressure 185/76 10/22/16 10:00 O2 Sat by Pulse Oximetry (%) 98 10/22/16 09:00 Constitutional: No Distress ...Auscultate: Yes: Normoactive Bowel Sounds ...Palpate: Yes: Soft, Other (nontender) Labs: CBC, BMP 10/22/16 07:00 10/22/16 07:00 INR, PTT INR 1.06 (0.82-1.09) 10/18/16 14:50 Assessment/Plan Paradoxical diarrhea. I have no GI objections to discharge on Miralax. I will stop her IVs.
[2016-10-22] MEDS ORDERED: PT OWN MED DRAWER 7, Y5N ONE (21:06)
[2016-10-22] MEDS: ATORVASTATIN CA 20 MG TABLET (FP) PO SCH (22:43)
[2016-10-22] MEDS: MAG HYDROX/AL HYDROX/SIMETH 30 ML UNIT-DOSE CUP PO PRN (22:58)
[2016-10-22] MEDS: CEFACLOR 250 MG CAPSULE PO SCH (22:59)
[2016-10-23] MEDS: INSULIN SLIDING SCALE (NOVOLOG) 1 VIAL SQ SCH ×4 (06:35→22:11)
[2016-10-23] MEDS ORDERED: PT OWN MED DRAWER 7, Y5N ONE ×2 (06:52→09:36)
[2016-10-23] MEDS: GLIMEPIRIDE 4 MG TABLET (FP) PO SCH (07:03)
--- NOTE | 2016-10-23 08:06 | PN ---
Progress Note, Physician History of Present Illness: Feeling a little better, more formed stool this morning - Current Medication List Current Medications: Active Medications Acetaminophen (Tylenol -) 650 mg PO Q4H PRN PRN Reason: FEVER OR PAIN Last Admin: 10/22/16 17:43 Dose: 650 mg Acetaminophen/Butalbital/Caffeine (Fioricet -) 1 tablet PO Q6H PRN PRN Reason: HEADACHE Last Admin: 10/21/16 19:50 Dose: 1 tablet Al Hydroxide/Mg Hydroxide (Mylanta Oral Suspension -) 30 ml PO Q6H PRN PRN Reason: DYSPEPSIA Last Admin: 10/22/16 22:58 Dose: 30 ml Atorvastatin Calcium (Lipitor -) 20 mg PO HS [facility] Last Admin: 10/22/16 22:43 Dose: 20 mg Carbamazepine (Tegretol -) 100 mg PO BID [facility] Last Admin: 10/22/16 22:45 Dose: 100 mg Cefaclor (Ceclor -) 250 mg PO BID [facility] Last Admin: 10/22/16 22:59 Dose: 250 mg Enoxaparin Sodium (Lovenox -) 40 mg SQ DAILY [facility] Last Admin: 10/22/16 10:38 Dose: 40 mg Glimepiride (Amaryl -) 4 mg PO DAILY@0700 [facility] Last Admin: 10/23/16 07:03 Dose: 4 mg Insulin Aspart (Novolog Vial Sliding Scale -) 0 vial SQ ACHS [facility] PRN Reason: Protocol Last Admin: 10/23/16 06:35 Dose: Not Given Lactobacillus Acidophilus (Bacid -) 1 tab PO DAILY [facility] Last Admin: 10/22/16 10:38 Dose: 1 tab Ondansetron HCl (Zofran Injection) 4 mg IVPB Q6H PRN PRN Reason: NAUSEA Last Admin: 10/20/16 06:18 Dose: 4 mg Oxycodone HCl (Roxicodone -) 5 mg PO Q4H PRN PRN Reason: PAIN LEVEL 6-10 Last Admin: 10/22/16 17:43 Dose: 5 mg Ranitidine HCl (Zantac -) 150 mg PO BID [facility] Last Admin: 10/22/16 22:43 Dose: 150 mg Valsartan (Diovan -) 320 mg PO DAILY [facility] Last Admin: 10/22/16 10:38 Dose: 320 mg - Objective Vital Signs: Vital Signs Temperature 97.6 F 10/23/16 07:33 Pulse Rate 62 10/23/16 07:33 Respiratory Rate 20 10/23/16 07:33 Blood Pressure 172/82 10/23/16 07:33 O2 Sat by Pulse Oximetry (%) 98 10/22/16 21:00 Constitutional: Yes: Well Nourished, No Distress, Calm Cardiovascular: Yes: Regular Rate and Rhythm, S1, S2. No: Murmur Respiratory: Yes: Regular, CTA Bilaterally. No: Rales, Rhonchi, Wheezes Gastrointestinal: Yes: Normal Bowel Sounds, Soft, Tenderness (mild bilateral lower quadrant tenderness, no guarding nor rebound). No: Distention Edema: No Neurological: Yes: Alert, Oriented Labs: CBC, BMP 10/22/16 07:00 10/22/16 07:00 INR, PTT INR 1.06 (0.82-1.09) 10/18/16 14:50 Assessment/Plan Current Active Problems Gastroenteritis (Acute) Hyponatremia (Acute) Migraine (Acute) Trigeminal neuralgia (Acute) UTI (urinary tract infection) (Acute) Paradoxical diarrhea -cont current treatment -d/c home tomorrow in AM if remains stable
[2016-10-23 08:44] LABS: ALBUMIN 3.6 g/dl (3.4-5.0); ANION GAP 10 (8-16); BILIRUBIN,TOTAL 0.6 mg/dL (0.2-1.0); CALCIUM 8.7 mg/dL (8.5-10.1); CO2 26 mmol/L (21-32); CREATININE 0.7 mg/dL (0.55-1.02); GLUCOSE,RANDOM 123 mg/dL (74-106); SGOT/AST 30 U/L (15-37); SGPT/ALT 15 U/L (12-78)
[2016-10-23 08:45] LABS: ALK PHOS 73 U/L (45-117); TOT PROT 6.3 g/dl (6.4-8.2)
[2016-10-23] MEDS: ENOXAPARIN NA (PORCINE) 40 MG/0.4 ML DISP.SYRIN SQ SCH (09:38)
[2016-10-23] MEDS: VALSARTAN 160 MG TABLET (UD) PO SCH (09:38)
[2016-10-23] MEDS: LACTOBACILLUS ACIDOPHILUS 1 EACH TAB (FP) PO SCH (09:38)
[2016-10-23] MEDS: ACETAMINOPHEN 325 MG TABLET (FP) PO PRN (09:38)
[2016-10-23] MEDS: RANITIDINE HCL 150 MG TABLET (FP) PO SCH ×2 (09:38→22:10)
[2016-10-23] MEDS: oxyCODONE HCL 5 MG TABLET PO PRN ×2 (09:38→22:15)
[2016-10-23] MEDS: carBAMazepine 100 MG TAB.CHEW PO SCH ×2 (09:39→22:10)
[2016-10-23] MEDS: CEFACLOR 250 MG CAPSULE PO SCH ×2 (09:39→22:10)
--- NOTE | 2016-10-23 10:22 | PN ---
GI Progress Note Subjective: GI NOte: Stool are better formed today and no longer urgent. Afebrile on oral cephalosporin. - Objective Vital Signs: Vital Signs Temperature 97.6 F 10/23/16 07:33 Pulse Rate 62 10/23/16 07:33 Respiratory Rate 20 10/23/16 07:33 Blood Pressure 172/82 10/23/16 07:33 O2 Sat by Pulse Oximetry (%) 98 10/22/16 21:00 Constitutional: Calm ...Auscultate: Yes: Normoactive Bowel Sounds ...Palpate: Yes: Other (nontender) Labs: CBC, BMP 10/22/16 07:00 10/23/16 07:00 INR, PTT INR 1.06 (0.82-1.09) 10/18/16 14:50 Laboratory Tests 10/22/16 10/23/16 07:00 07:00 WBC 7.9 Total Bilirubin 0.6 D AST 30 D ALT 15 D Alkaline Phosphatase 73 Assessment/Plan Paradoxical diarrhea. I have no GI objections to discharge on Miralax in AM as planned.
[2016-10-23] MEDS: ATORVASTATIN CA 20 MG TABLET (FP) PO SCH (22:10)
[2016-10-24] MEDS: INSULIN SLIDING SCALE (NOVOLOG) 1 VIAL SQ SCH (06:38)
[2016-10-24] MEDS ORDERED: INSULIN (NOVOLOG) ASPART 100 UNITS/ML 10ML VIAL ONE (06:43)
[2016-10-24] MEDS: GLIMEPIRIDE 4 MG TABLET (FP) PO SCH (06:52)
[2016-10-24] MEDS: ENOXAPARIN NA (PORCINE) 40 MG/0.4 ML DISP.SYRIN SQ SCH (09:18)
[2016-10-24] MEDS: LACTOBACILLUS ACIDOPHILUS 1 EACH TAB (FP) PO SCH (09:32)
[2016-10-24] MEDS: RANITIDINE HCL 150 MG TABLET (FP) PO SCH (09:32)
[2016-10-24] MEDS: VALSARTAN 160 MG TABLET (UD) PO SCH (09:32)
[2016-10-24] MEDS ORDERED: PT OWN MED DRAWER 7, Y5N ONE (09:35)
[2016-10-24] MEDS: carBAMazepine 100 MG TAB.CHEW PO SCH (09:36)
--- NOTE | 2016-10-24 09:36 | DS ---
Physical Examination Vital Signs: Vital Signs Temperature 98.2 F 10/24/16 06:00 Pulse Rate 64 10/24/16 06:00 Respiratory Rate 20 10/24/16 06:00 Blood Pressure 155/78 10/24/16 06:00 O2 Sat by Pulse Oximetry (%) 98 10/23/16 21:00 Constitutional: Yes: Well Nourished, No Distress, Calm Eyes: Yes: Conjunctiva Clear, EOM Intact, PERRL HENT: Yes: Atraumatic, Normocephalic Neck: Yes: Supple, Trachea Midline Cardiovascular: Yes: Regular Rate and Rhythm, S1, S2. No: Murmur Respiratory: Yes: Regular, CTA Bilaterally. No: Rales, Rhonchi, Wheezes Gastrointestinal: Yes: Normal Bowel Sounds, Soft, Tenderness (mild bilateral lower quadrants). No: Distention Edema: No Labs: CBC, BMP 10/22/16 07:00 10/23/16 07:00 Discharge Summary Reason For Visit: URINARY TRACT INFECTION; HYPONATREMIA; WEAKNESS Current Active Problems Gastroenteritis (Acute) Hyponatremia (Acute) Migraine (Acute) Trigeminal neuralgia (Acute) UTI (urinary tract infection) (Acute) Hospital Course: 81 yo female admitted with N/V, abd pain, dizziness and diarrhea. Was noted todiarrhea be hyponatremic, admitted and given IVF. 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 GI consulted and likely diarrhea is paradoxical due to constipation. Patient also hasd exacerbation of vertigo during the hospitalization, seen by neurology (no acute neurologic problems found) and vertigo resolved with IVF (likely contribution of dehydration). Also noted to have UTI, was on IV ceftriaxone, now ready to be discharged on PO Ceclor for 5 days. Will also be prescribed Bacid to take BID, which may also help regulate her bowels. Condition: Stable - Instructions Referrals: Karl Bain MD [Primary Care Provider] - Disposition: HOME - Home Medications Comprehensive Discharge Medication List: Ambulatory Orders Atorvastatin Ca [Lipitor] 20 mg PO HS 10/18/16 Carbamazepine [Tegretol -] 100 mg PO BID 10/18/16 Glimepiride [Amaryl] 4 mg PO DAILY 10/18/16 Ranitidine HCl [Zantac] 150 mg PO BID 10/18/16 Valsartan [Diovan] 320 mg PO DAILY 10/18/16 Acetaminophen/Caffeine/Butalb [Fioricet -] 1 tablet PO Q6H PRN #0 tablet MDD 4 10/24/16 Cefaclor [Ceclor -] 250 mg PO BID #10 tab 10/24/16 Lactobacillus Acidophilus [Bacid -] 1 tab PO DAILY #60 tab 10/24/16 Mag Hydrox/Al Hydrox/Simeth [Mylanta Oral Suspension -] 30 ml PO Q6H PRN #400 ml 10/24/16
[2016-10-24] MEDS: CEFACLOR 250 MG CAPSULE PO SCH (09:37)
[2016-10-24] MEDS: ACETAMINOPHEN/CAFFEINE/BUTALBITAL 1 TAB PO PRN (09:40)
[2016-10-24 09:45] VITALS: BP 127/82; PULSE 76; TEMP 98.8
== END 2016-10-24 10:22 | disposition home or self-care (01) | DRG 690 ==
LOC: JER 12:50 → JERBED 16:43 → J5S 20:03 → J8W 10-21 10:40
PROVIDERS: ADMIT Internal Medicine; ATTEND Internal Medicine
DX: N39.0 Urinary tract infection, site not specified (principal); E87.1 Hypo-osmolality and hyponatremia; R42 Dizziness and giddiness; K21.9 Gastro-esophageal reflux disease without esophagitis; E11.9 Type 2 diabetes mellitus without complications; E78.00 Pure hypercholesterolemia, unspecified; B96.1 Klebsiella pneumoniae [K. pneumoniae] as the cause of diseases classified elsewhere; I10 Essential (primary) hypertension; K52.9 Noninfective gastroenteritis and colitis, unspecified; G43.809 Other migraine, not intractable, without status migrainosus; G50.0 Trigeminal neuralgia; R10.9 Unspecified abdominal pain; G44.209 Tension-type headache, unspecified, not intractable; K57.90 Diverticulosis of intestine, part unspecified, without perforation or abscess without bleeding; K44.9 Diaphragmatic hernia without obstruction or gangrene; K86.89 Other specified diseases of pancreas; E86.0 Dehydration; N39.490 Overflow incontinence; K59.09 Other constipation
CPT/HCPCS: 36415; 71010-TC; 74176-TC; 80048; 80053; 81003; 81015; 82570; 83690; 83735; 83930; 83935; 84100; 84484; 85025; 85610; 87040; 87045; 87046; 87086; 87186; 87205; 87324; 87449; 93005; 93010; 97116-GP; 97161-GP; 99284-25

== ENCOUNTER 2017-03-10 07:01 | Day surgery (SDC) | payer OTHER ==
[2017-03-10 07:31] VITALS: BMI 25.4
[2017-03-10] MEDS ORDERED: LIDOCAINE HCL/PF 2% SDV 5ML VIAL ONE (07:58)
[2017-03-10] MEDS ORDERED: PROPOFOL 20 ML ONE ×5 (07:58)
[2017-03-10 08:38] VITALS: TEMP 97.5
[2017-03-10 09:24] VITALS: BP 136/80; PULSE 66
--- NOTE | 2017-03-13 12:04 | PATH ---
Surgical Pathology Report Patient Name: DONTAE CABRERA [facility]. Rec. #: [id number] /Age/Gender: 1935 (Age: 81) / F Account: [id number] Location: [facility]-ENDOSCOPY Taken: 03/10/2017 Received: 03/10/2017 Reported: 03/13/2017 Physicians: Eboni Villanueva M.D. Specimen(s) Received A: BX TRANSVERSE COLON POLYP B: BX CECUM BIOPSY C: BX ILEUM Clinical History Preoperative diagnosis: Weight loss Postoperative diagnosis: Colon polyps, diverticulosis Final Diagnosis A. TRANSVERSE COLON, POLYP, BIOPSY: TUBULAR ADENOMA. B. CECUM, BIOPSY: COLONIC MUCOSA WITHOUT SIGNIFICANT PATHOLOGIC FINDINGS. NO EVIDENCE OF MICROSCOPIC COLITIS. C. ILEUM, BIOPSY: ILEAL MUCOSA WITHOUT SIGNIFICANT PATHOLOGIC FINDINGS. Electronically Signed Jazlyn Caballero M.D. Gross Description A. Received in formalin, labeled "biopsy transverse colon polyp" are 2 jeong, irregular portions of soft tissue measuring 0.2 and 0.3 cm. in greatest dimension. The specimens are submitted in toto in one cassette. B. Received in formalin, labeled "biopsy cecum" are 3 jeong, irregular portions of soft tissue ranging from 0.3-0.4 cm. in greatest dimension. The specimens are submitted in toto in one cassette. C. Received in formalin, labeled "biopsy ileum" are 2 jeong, irregular portions of soft tissue averaging 0.3 cm. in greatest dimension. The specimens are submitted in toto in one cassette. DL03/10/2017 saudi03/10/2017
== END 2017-03-10 09:30 | disposition home or self-care (01) ==
LOC: JASU-ENDO 07:01
PROVIDERS: ATTEND Internal Medicine Gastroenterology
PROC: 0DBL8ZX Excision of Transverse Colon, Via Natural or Artificial Opening Endoscopic, Diagnostic (ICD-10-PCS; principal; 2017-03-10 08:00)
DX: Z12.11 Encounter for screening for malignant neoplasm of colon (principal); Z80.0 Family history of malignant neoplasm of digestive organs; K63.5 Polyp of colon; K57.30 Diverticulosis of large intestine without perforation or abscess without bleeding
CPT/HCPCS: 88305-TC

== ENCOUNTER 2023-04-14 16:21 | Inpatient (IN) | payer OTHER ==
[2023-04-14 18:29] LABS: HEMATOCRIT 40.8 % (32.4-45.2); MCH 31.9 pg (25.7-33.7); MCHC 34.2 g/dl (32.0-36.0); MEAN CELL VOLUME 93.3 fl (80-96); MEAN PLT VOLUME 7.7 fl (7.5-11.1); PLATELET COUNT 332 10^3/uL (134-434); RBC 4.38 M/mm3 (3.60-5.2); RDW 14.1 % (11.6-15.6); WHITE BLOOD COUNT 22.5 K/mm3 (4.0-10.0)
[2023-04-14 18:37] LABS: INR 1.05 (0.83-1.09); PROTHROMBIN TIME (PATIENT) 12.2 SEC (9.7-13.0)
[2023-04-14 18:39] LABS: ACTIVATED PTT 25.1 SECONDS (25.2-36.5)
[2023-04-14 18:54] LABS: CHLORIDE 106 mmol/L (98-107); POTASSIUM 3.9 mmol/L (3.5-5.1); SODIUM 142 mmol/L (136-145)
[2023-04-14 18:57] LABS: ALBUMIN 3.5 g/dl (3.4-5.0)
[2023-04-14 18:59] LABS: ANION GAP 16 mmol/L (4-13); BLOOD UREA NITROGEN 43.3 mg/dL (7-18); CO2 19 mmol/L (21-32); GLUCOSE,RANDOM 190 mg/dL (74-106)
[2023-04-14 19:01] LABS: CREATININE 0.9 mg/dL (0.55-1.3); SGOT/AST 133 U/L (15-37); SGPT/ALT 28 U/L (13-61)
[2023-04-14 19:03] LABS: BILIRUBIN,TOTAL 0.9 mg/dL (0.2-1); TOT PROT 7.4 g/dl (6.4-8.2)
[2023-04-14 19:04] LABS: ALK PHOS 79 U/L (45-117)
[2023-04-14 19:05] LABS: ANISOCYTOSIS 1+; MACROCYTOSIS 0; OVALOCYTE 1+
[2023-04-14 19:16] LABS: EPI CELLS 12 /uL (0-25.1); HYALINE CASTS 8 /uL (0-3.1); PH,URINE 5.5 (5.0-8.0); URINE APPEARANCE CLOUDY; URINE BACTERIA 6 /uL (0-1359); URINE BILIRUBIN NEGATIVE (NEGATIVE); URINE COLOR YELLOW; URINE GLUCOSE (UA) 2+ (NEGATIVE); URINE KETONE 3+ (NEGATIVE); URINE LEUK ESTERASE NEGATIVE (NEGATIVE); URINE NITRITE NEGATIVE (NEGATIVE); URINE PROTEIN 2+ (NEGATIVE); URINE RBC 15 /uL (0-23.9); URINE UROBILINOGEN 0.2 mg/dL (0.2-1.0); URINE WBC 6 /uL (0-25.8)
[2023-04-14] MEDS: SODIUM CHLORIDE 1,000 ML IV STA (20:10)
[2023-04-14] MEDS: LACTATED RINGERS SOLUTION 1000 ML INFUS.BAG IV ONE (22:30)
[2023-04-15] MEDS ORDERED: morphine SULFATE 4 MG/ML VIAL ONE (01:00)
[2023-04-15] MEDS: morphine CARPU-JECT 4 MG/1 ML DISP.SYRIN IVPUSH ONE (01:21)
[2023-04-15 02:33] VITALS: BMI 24.0
[2023-04-15] MEDS: LACTATED RINGERS SOLUTION 1,000 ML/1,000 ML INFUS.BAG IV SCH ×2 (04:45→17:28)
[2023-04-15 05:16] LABS: EPI CELLS 12 /uL (0-25.1); HYALINE CASTS 1 /uL (0-3.1); URINE APPEARANCE CLEAR; URINE BACTERIA 147 /uL (0-1359); URINE BILIRUBIN NEGATIVE (NEGATIVE); URINE COLOR YELLOW; URINE GLUCOSE (UA) 3+ (NEGATIVE); URINE KETONE 2+ (NEGATIVE); URINE LEUK ESTERASE TRACE (NEGATIVE); URINE NITRITE NEGATIVE (NEGATIVE); URINE PROTEIN 1+ (NEGATIVE); URINE UROBILINOGEN 0.2 mg/dL (0.2-1.0); URINE WBC 163 /uL (0-25.8)
[2023-04-15 05:46] LABS: BASO % 0.3 % (0-2.0); MEAN PLT VOLUME 8.6 fl (7.5-11.1)
[2023-04-15 06:10] LABS: HEMATOCRIT 40.8 % (32.4-45.2); HEMOGLOBIN 13.3 GM/dL (10.7-15.3); LYMPH % 8.9 % (8-40); MCH 30.8 pg (25.7-33.7); MCHC 32.6 g/dl (32.0-36.0); MEAN CELL VOLUME 94.6 fl (80-96); NEUT % 81.8 % (42.8-82.8); RBC 4.32 M/mm3 (3.60-5.2); RDW 14.3 % (11.6-15.6); WHITE BLOOD COUNT 18.9 K/mm3 (4.0-10.0)
[2023-04-15] MEDS: INSULIN ASPART SLIDING SCALE (NOVOLOG) 1 VIAL SQ SCH (06:48)
[2023-04-15] MEDS: PANTOPRAZOLE 20 MG TABLET PO SCH (06:51)
[2023-04-15 07:23] LABS: PLATELET COUNT 247.5 10^3/uL (134-434)
[2023-04-15 08:29] LABS: URINE RBC 39.9 /uL (0-23.9)
[2023-04-15] MEDS: FAMOTIDINE 20 MG TABLET PO SCH (09:24)
[2023-04-15] MEDS: amLODIPine BESYLATE 5 MG TABLET (FP) PO SCH (09:24)
[2023-04-15 09:46] LABS: CHLORIDE 111 mmol/L (98-107); SODIUM 143 mmol/L (136-145)
[2023-04-15 09:48] LABS: CALCIUM 8.8 mg/dL (8.5-10.1)
[2023-04-15 09:49] LABS: ALBUMIN 2.8 g/dl (3.4-5.0); BLOOD UREA NITROGEN 36.2 mg/dL (7-18); CO2 24 mmol/L (21-32); GLUCOSE,RANDOM 160 mg/dL (74-106); MAGNESIUM 2.1 mg/dL (1.8-2.4)
[2023-04-15 09:52] LABS: BILIRUBIN,TOTAL 0.6 mg/dL (0.2-1); CREATININE 0.9 mg/dL (0.55-1.3); PHOSPHOROUS 2.3 mg/dL (2.5-4.9); SGOT/AST 70 U/L (15-37); SGPT/ALT 20 U/L (13-61)
[2023-04-15 09:54] LABS: ALK PHOS 61 U/L (45-117); TOT PROT 5.9 g/dl (6.4-8.2)
[2023-04-15 09:55] LABS: ANION GAP 8 mmol/L (4-13); POTASSIUM 2.7 mmol/L (3.5-5.1)
[2023-04-15] MEDS ORDERED: ENOXAPARIN NA (PORCINE) 40 MG/0.4 ML DISP.SYRIN SQ SCH ×2 (10:00)
[2023-04-15] MEDS ORDERED: ATORVASTATIN CA 20 MG TABLET (FP) PO SCH (10:00)
[2023-04-15] MEDS: KCL 10 MEQ IVPB 10 MEQ/100 ML INFUS.BAG IVPB SCH (11:18)
[2023-04-15] MEDS: NAPH,MB-DB/K PH,MBDB POWDER PACKET PO ONE (13:16)
[2023-04-15] MEDS: HEPARIN NA (PORCINE) 5,000 UNITS/ML 1ML VIAL SQ SCH (13:16)
[2023-04-15] MEDS: ACETAMINOPHEN 325 MG TABLET (FP) PO PRN (13:40)
[2023-04-15] MEDS: MECLIZINE HCL 12.5 MG TABLET PO PRN (16:37)
[2023-04-15 20:43] LABS: POTASSIUM 3.4 mmol/L (3.5-5.1)
[2023-04-15 20:45] LABS: BLOOD UREA NITROGEN 32.8 mg/dL (7-18); CALCIUM 8.6 mg/dL (8.5-10.1)
[2023-04-15 20:50] LABS: CREATININE 0.8 mg/dL (0.55-1.3)
[2023-04-15] MEDS ORDERED: ATORVASTATIN CA 40 MG TABLET (FP) PO SCH (22:00)
[2023-04-15] MEDS: INSULIN (LEVEMIR) 100 UNITS/ML UNITS SQ SCH (22:36)
[2023-04-15] MEDS: BENZOCAINE/MENTH/CETYLPYRD CL 1 EACH LOZENGE MM PRN (22:39)
[2023-04-16 08:52] LABS: HEMOGLOBIN 11.5 GM/dL (10.7-15.3); MCH 32.1 pg (25.7-33.7); MCHC 34.8 g/dl (32.0-36.0); MEAN CELL VOLUME 92.3 fl (80-96); MEAN PLT VOLUME 7.9 fl (7.5-11.1); PLATELET COUNT 262 10^3/uL (134-434); RBC 3.58 M/mm3 (3.60-5.2); RDW 13.8 % (11.6-15.6); WHITE BLOOD COUNT 10.4 K/mm3 (4.0-10.0)
[2023-04-16 08:55] LABS: POTASSIUM 3.1 mmol/L (3.5-5.1)
[2023-04-16 08:57] LABS: CALCIUM 8.5 mg/dL (8.5-10.1)
[2023-04-16 08:58] LABS: BLOOD UREA NITROGEN 24.3 mg/dL (7-18)
[2023-04-16 09:01] LABS: ALBUMIN 2.3 g/dl (3.4-5.0); CREATININE 0.6 mg/dL (0.55-1.3)
[2023-04-16 09:02] LABS: BILIRUBIN,TOTAL 0.6 mg/dL (0.2-1)
[2023-04-16 09:04] LABS: TOT PROT 5.5 g/dl (6.4-8.2)
[2023-04-16] MEDS: ENOXAPARIN NA (PORCINE) 40 MG/0.4 ML DISP.SYRIN SQ SCH (09:20)
[2023-04-16] MEDS: LIDOCAINE 4% PATCH TP SCH (10:39)
[2023-04-16] MEDS: oxyCODONE HCL 5 MG TABLET PO PRN (10:40)
[2023-04-16] MEDS: KCL 10 MEQ IVPB 10 MEQ/100 ML INFUS.BAG IVPB SCH (10:40)
[2023-04-16 11:11] LABS: MAGNESIUM 2.1 mg/dL (1.8-2.4)
[2023-04-16] MEDS: LIDOCAINE PATCH REMOVAL MC SCH (21:42)
[2023-04-17 09:10] LABS: INR 1.04 (0.83-1.09); PROTHROMBIN TIME (PATIENT) 12.1 SEC (9.7-13.0)
[2023-04-17 09:15] LABS: POTASSIUM 3.3 mmol/L (3.5-5.1)
[2023-04-17 09:20] LABS: CALCIUM 8.4 mg/dL (8.5-10.1)
[2023-04-17 09:22] LABS: ALBUMIN 2.3 g/dl (3.4-5.0); BLOOD UREA NITROGEN 15.1 mg/dL (7-18)
[2023-04-17 09:24] LABS: CREATININE 0.6 mg/dL (0.55-1.3)
[2023-04-17 09:25] LABS: BILIRUBIN,TOTAL 0.5 mg/dL (0.2-1); TOT PROT 5.3 g/dl (6.4-8.2)
[2023-04-17] MEDS: POLYETHYLENE GLYCOL (HEALTHYLAX) 3350 17 GM PACKET PO SCH (09:37)
[2023-04-17] MEDS: DOCUSATE SODIUM 100 MG CAPSULE (FP) PO PRN (09:37)
[2023-04-17 12:47] LABS: BASO % 0.5 % (0-2.0); EOS % 0.9 % (0-4.5); HEMOGLOBIN 12.7 GM/dL (10.7-15.3); LYMPH % 23.8 % (8-40); MCH 31.5 pg (25.7-33.7); MCHC 33.3 g/dl (32.0-36.0); MEAN CELL VOLUME 94.4 fl (80-96); MONO % 6.8 % (3.8-10.2); PLATELET COUNT 289 10^3/uL (134-434); RBC 4.02 M/mm3 (3.60-5.2); RDW 13.7 % (11.6-15.6); WHITE BLOOD COUNT 9.6 K/mm3 (4.0-10.0)
[2023-04-17] MEDS: POTASSIUM CHLORIDE TABS 20 MEQ TABLET.ER (FP) PO ONE (18:41)
[2023-04-18] MEDS ORDERED: INSULIN (LEVEMIR) 100 UNITS/ML UNITS SQ ONE (07:29)
[2023-04-18] MEDS ORDERED: BUPIVACAINE HCL/PF 0.5% (5MG/ML) 10 ML VIAL ONE ×2 (09:05→10:29)
[2023-04-18] MEDS ORDERED: MIDAZOLAM HCL 2 MG/2 ML SINGLE DOSE VIAL ONE (09:06)
[2023-04-18] MEDS ORDERED: DEXAMETHASONE SOD PHOSPHATE 10 MG/1 ML VIAL ONE (09:11)
[2023-04-18 10:01] LABS: BASO % 0.3 % (0-2.0); EOS % 1.5 % (0-4.5); HEMATOCRIT 37.1 % (32.4-45.2); HEMOGLOBIN 12.2 GM/dL (10.7-15.3); LYMPH % 22.9 % (8-40); MCH 30.9 pg (25.7-33.7); MCHC 32.9 g/dl (32.0-36.0); MEAN CELL VOLUME 93.9 fl (80-96); MONO % 8.2 % (3.8-10.2); NEUT % 67.1 % (42.8-82.8); PLATELET COUNT 277 10^3/uL (134-434); RBC 3.95 M/mm3 (3.60-5.2); RDW 13.7 % (11.6-15.6); WHITE BLOOD COUNT 10.3 K/mm3 (4.0-10.0)
[2023-04-18 10:23] LABS: POTASSIUM 3.9 mmol/L (3.5-5.1)
[2023-04-18] MEDS ORDERED: PROPOFOL 20 ML ONE (10:26)
[2023-04-18] MEDS ORDERED: VANCOMYCIN 1,000 MG VIAL (RESTRICTED TO ID ONLY) ONE (10:27)
[2023-04-18] MEDS ORDERED: ceFAZolin SODIUM 1 GM VIAL ONE ×2 (10:28→11:38)
[2023-04-18] MEDS ORDERED: ACETAMINOPHEN INJECTION 100 ML IVPB ONE (10:29)
[2023-04-18 10:34] LABS: BLOOD UREA NITROGEN 13.5 mg/dL (7-18)
[2023-04-18 10:35] LABS: ALBUMIN 2.4 g/dl (3.4-5.0)
[2023-04-18 10:37] LABS: CREATININE 0.7 mg/dL (0.55-1.3); PHOSPHOROUS 3.4 mg/dL (2.5-4.9)
[2023-04-18 10:38] LABS: TOT PROT 5.7 g/dl (6.4-8.2)
[2023-04-18 10:39] LABS: CALCIUM 8.7 mg/dL (8.5-10.1)
[2023-04-18] MEDS ORDERED: morphine CARPU-JECT 2 MG/1 ML DISP.SYRIN IVPUSH PRN (10:41)
[2023-04-18] MEDS ORDERED: ONDANSETRON 4 MG/2 ML VIAL IVPUSH PRN ×2 (10:41→12:53)
[2023-04-18 10:46] LABS: BILIRUBIN,TOTAL 0.5 mg/dL (0.2-1)
[2023-04-18] MEDS: ceFAZolin SODIUM 1 GM VIAL IVPB ONE ×2 (11:12→11:55)
[2023-04-18] MEDS ORDERED: TRANEXAMIC ACID 1000 MG/10 ML VIAL ONE (11:38)
[2023-04-18] MEDS: VANCOMYCIN 1,000 MG VIAL (RESTRICTED TO ID ONLY) IVPB ONE (11:55)
[2023-04-18] MEDS ORDERED: DOCUSATE SODIUM 100 MG CAPSULE (FP) PO PRN (12:53)
[2023-04-18] MEDS ORDERED: BENZOCAINE/MENTH/CETYLPYRD CL 1 EACH LOZENGE MM PRN (12:53)
[2023-04-18] MEDS: LACTATED RINGERS SOLUTION 1,000 ML IV SCH ×3 (15:30→15:52)
[2023-04-18] MEDS: INSULIN ASPART SLIDING SCALE (NOVOLOG) 1 VIAL SQ SCH (17:04)
[2023-04-18] MEDS: CEFAZOLIN SODIUM 2 GM in DEXTROSE 5%-WATER 100 ML IVPB SCH (18:34)
[2023-04-18] MEDS: oxyCODONE HCL 5 MG TABLET PO PRN (18:35)
[2023-04-18] MEDS ORDERED: CEFAZOLIN SODIUM 2 GM in DEXTROSE 5%-WATER 100 ML IVPB SCH (19:00)
[2023-04-18] MEDS: SENNOSIDES/DOCUSATE COMBO (SENNA PLUS) TABLET (UD) PO SCH (21:26)
[2023-04-18] MEDS: FAMOTIDINE 20 MG TABLET PO SCH (21:26)
[2023-04-18] MEDS: INSULIN (LEVEMIR) 100 UNITS/ML UNITS SQ SCH (21:46)
[2023-04-18] MEDS ORDERED: SENNOSIDES/DOCUSATE COMBO (SENNA PLUS) TABLET (UD) PO SCH (22:00)
[2023-04-19] MEDS: LIDOCAINE PATCH REMOVAL MC SCH (07:27)
[2023-04-19 08:30] LABS: BASO % 0.3 % (0-2.0); EOS % 0.1 % (0-4.5); HEMATOCRIT 32.3 % (32.4-45.2); HEMOGLOBIN 11.2 GM/dL (10.7-15.3); LYMPH % 19.3 % (8-40); MCH 32.1 pg (25.7-33.7); MCHC 34.5 g/dl (32.0-36.0); MEAN CELL VOLUME 93.1 fl (80-96); MEAN PLT VOLUME 7.7 fl (7.5-11.1); MONO % 9.6 % (3.8-10.2); NEUT % 70.7 % (42.8-82.8); PLATELET COUNT 278 10^3/uL (134-434); RBC 3.47 M/mm3 (3.60-5.2); RDW 13.6 % (11.6-15.6); WHITE BLOOD COUNT 13.7 K/mm3 (4.0-10.0)
[2023-04-19 08:32] LABS: HEMATOCRIT 32.7 % (32.4-45.2); HEMOGLOBIN 11.2 GM/dL (10.7-15.3); MCH 31.7 pg (25.7-33.7); MCHC 34.1 g/dl (32.0-36.0); MEAN CELL VOLUME 92.8 fl (80-96); PLATELET COUNT 274 10^3/uL (134-434); RBC 3.52 M/mm3 (3.60-5.2); RDW 13.5 % (11.6-15.6); WHITE BLOOD COUNT 13.5 K/mm3 (4.0-10.0)
[2023-04-19 09:00] LABS: BLOOD UREA NITROGEN 13.5 mg/dL (7-18); MAGNESIUM 1.9 mg/dL (1.8-2.4)
[2023-04-19 09:01] LABS: ALBUMIN 2.3 g/dl (3.4-5.0)
[2023-04-19 09:03] LABS: PHOSPHOROUS 4.1 mg/dL (2.5-4.9)
[2023-04-19 09:04] LABS: CREATININE 0.8 mg/dL (0.55-1.3)
[2023-04-19 09:05] LABS: BILIRUBIN,TOTAL 0.3 mg/dL (0.2-1); TOT PROT 5.4 g/dl (6.4-8.2)
[2023-04-19 09:15] LABS: POTASSIUM 3.7 mmol/L (3.5-5.1)
[2023-04-19] MEDS: LIDOCAINE 4% PATCH TP SCH (09:58)
[2023-04-19] MEDS: POLYETHYLENE GLYCOL (HEALTHYLAX) 3350 17 GM PACKET PO SCH (09:59)
[2023-04-19] MEDS: ENOXAPARIN NA (PORCINE) 40 MG/0.4 ML DISP.SYRIN SQ SCH ×2 (10:00→22:34)
[2023-04-19] MEDS: amLODIPine BESYLATE 5 MG TABLET (FP) PO SCH (10:00)
[2023-04-20 07:30] LABS: POTASSIUM 3.6 mmol/L (3.5-5.1)
[2023-04-20 07:35] LABS: ALBUMIN 2.1 g/dl (3.4-5.0); BLOOD UREA NITROGEN 12.1 mg/dL (7-18); MAGNESIUM 1.8 mg/dL (1.8-2.4)
[2023-04-20 07:38] LABS: CREATININE 0.7 mg/dL (0.55-1.3); PHOSPHOROUS 3.4 mg/dL (2.5-4.9)
[2023-04-20 07:39] LABS: BILIRUBIN,TOTAL 0.5 mg/dL (0.2-1); TOT PROT 5.2 g/dl (6.4-8.2)
[2023-04-20 07:45] LABS: HEMATOCRIT 29.9 % (32.4-45.2); HEMOGLOBIN 10.6 GM/dL (10.7-15.3); MCH 32.9 pg (25.7-33.7); MCHC 35.6 g/dl (32.0-36.0); MEAN CELL VOLUME 92.3 fl (80-96); MEAN PLT VOLUME 7.6 fl (7.5-11.1); PLATELET COUNT 267 10^3/uL (134-434); RBC 3.24 M/mm3 (3.60-5.2); RDW 13.5 % (11.6-15.6); WHITE BLOOD COUNT 9.4 K/mm3 (4.0-10.0)
[2023-04-20 07:54] LABS: BASO % 0.2 % (0-2.0); HEMATOCRIT 29.7 % (32.4-45.2); HEMOGLOBIN 10.5 GM/dL (10.7-15.3); LYMPH % 20.8 % (8-40); MCH 32.5 pg (25.7-33.7); MCHC 35.4 g/dl (32.0-36.0); MEAN PLT VOLUME 7.6 fl (7.5-11.1); MONO % 10.7 % (3.8-10.2); NEUT % 67.3 % (42.8-82.8); PLATELET COUNT 266 10^3/uL (134-434); RBC 3.23 M/mm3 (3.60-5.2); RDW 13.4 % (11.6-15.6); WHITE BLOOD COUNT 9.3 K/mm3 (4.0-10.0)
[2023-04-20] MEDS: ACETAMINOPHEN 325 MG TABLET (FP) PO PRN (19:45)
[2023-04-20 20:59] VITALS: RESP 18
[2023-04-20 21:27] VITALS: PULSE 89; TEMP 98.8
[2023-04-20 22:07] VITALS: BP 115/53
== END 2023-04-20 21:40 | DRG 521 ==
LOC: JER 16:21 → JERBED 23:20 → J6S 04-15 01:56
PROVIDERS: ADMIT Internal Medicine; ATTEND Internal Medicine
PROC: 0SRS0JZ Replacement of Left Hip Joint, Femoral Surface with Synthetic Substitute, Open Approach (ICD-10-PCS; principal; 2023-04-18 10:00)
DX: S72.002A Fracture of unspecified part of neck of left femur, initial encounter for closed fracture (principal); I21.A1 Myocardial infarction type 2; M62.82 Rhabdomyolysis; E11.65 Type 2 diabetes mellitus with hyperglycemia; I10 Essential (primary) hypertension; K21.9 Gastro-esophageal reflux disease without esophagitis; E78.5 Hyperlipidemia, unspecified; E87.6 Hypokalemia; M54.31 Sciatica, right side; W19.XXXA Unspecified fall, initial encounter; Y93.9 Activity, unspecified; Y92.89 Other specified places as the place of occurrence of the external cause; Y99.9 Unspecified external cause status
CPT/HCPCS: 0241U-QW; 36415; 70450-TC; 71046-TC-FY; 72125-TC; 72131-TC; 72170-TC-FY; 73070-TC-LT-FY; 73502-TC-LT-FY; 80048; 80053; 81003; 82550; 82553; 82962; 83036; 83605; 83735; 84100; 84484; 85025; 85027; 85610; 85730; 86850; 86900; 86901; 93005; 93010; 93306-TC; 94760; 97116-GP; 97162-GP; 99285-25; C1776; J0131; J1100; J1644

== ENCOUNTER 2023-04-29 23:06 | Inpatient (IN) | payer OTHER ==
[2023-04-29 23:21] VITALS: BMI 26.4
[2023-04-30] MEDS ORDERED: ACETAMINOPHEN INJECTION 100 ML IVPB ONE (00:01)
[2023-04-30] MEDS: ACETAMINOPHEN 1000 MG/100 ML BAG IVPB ONE (00:20)
[2023-04-30 01:02] LABS: BASO % 0.4 % (0-2.0); EOS % 0.9 % (0-4.5); HEMATOCRIT 30.5 % (32.4-45.2); HEMOGLOBIN 10.2 GM/dL (10.7-15.3); LYMPH % 19.4 % (8-40); MCH 30.9 pg (25.7-33.7); MCHC 33.5 g/dl (32.0-36.0); MEAN CELL VOLUME 92.2 fl (80-96); MEAN PLT VOLUME 6.7 fl (7.5-11.1); MONO % 6.7 % (3.8-10.2); NEUT % 72.6 % (42.8-82.8); PLATELET COUNT 556 10^3/uL (134-434); RBC 3.31 M/mm3 (3.60-5.2); RDW 13.6 % (11.6-15.6); WHITE BLOOD COUNT 10.6 K/mm3 (4.0-10.0)
[2023-04-30 01:21] LABS: INR 1.79 (0.83-1.09); PROTHROMBIN TIME (PATIENT) 20.6 SEC (9.7-13.0)
[2023-04-30 01:24] LABS: ACTIVATED PTT 34.9 SECONDS (25.2-36.5)
[2023-04-30 01:27] LABS: POTASSIUM 4.2 mmol/L (3.5-5.1)
[2023-04-30 01:29] LABS: CALCIUM 9.2 mg/dL (8.5-10.1)
[2023-04-30 01:30] LABS: ALBUMIN 2.4 g/dl (3.4-5.0); BLOOD UREA NITROGEN 16.2 mg/dL (7-18); MAGNESIUM 2.2 mg/dL (1.8-2.4)
[2023-04-30 01:33] LABS: CREATININE 0.8 mg/dL (0.55-1.3); PHOSPHOROUS 4.1 mg/dL (2.5-4.9)
[2023-04-30 01:34] LABS: BILIRUBIN,TOTAL 0.4 mg/dL (0.2-1); TOT PROT 6.1 g/dl (6.4-8.2)
[2023-04-30] MEDS: SODIUM CHLORIDE 0.9% 500 ML INFUS.BAG IV ONE (01:44)
[2023-04-30] MEDS: morphine CARPU-JECT 2 MG/1 ML DISP.SYRIN IVPUSH ONE (03:05)
[2023-04-30] MEDS: INSULIN ASPART SLIDING SCALE (NOVOLOG) 1 VIAL SQ SCH ×2 (04:22→08:48)
[2023-04-30] MEDS ORDERED: MECLIZINE HCL 12.5 MG TABLET PO PRN (05:19)
[2023-04-30 05:49] LABS: EPI CELLS 2 /uL (0-25.1); HYALINE CASTS 0 /uL (0-3.1); URINE APPEARANCE CLEAR; URINE BACTERIA 12 /uL (0-1359); URINE BILIRUBIN NEGATIVE (NEGATIVE); URINE COLOR YELLOW; URINE GLUCOSE (UA) NEGATIVE (NEGATIVE); URINE KETONE NEGATIVE (NEGATIVE); URINE LEUK ESTERASE TRACE (NEGATIVE); URINE NITRITE NEGATIVE (NEGATIVE); URINE PROTEIN NEGATIVE (NEGATIVE); URINE RBC 16 /uL (0-23.9); URINE UROBILINOGEN 0.2 mg/dL (0.2-1.0); URINE WBC 11 /uL (0-25.8)
[2023-04-30] MEDS: SODIUM CHLORIDE 1,000 ML IV SCH (05:52)
[2023-04-30] MEDS: ACETAMINOPHEN 325 MG TABLET (FP) PO SCH (06:04)
[2023-04-30] MEDS ORDERED: ACETAMINOPHEN 325 MG TABLET (FP) PO PRN ×2 (06:32→11:08)
[2023-04-30 07:31] LABS: BASO % 0.4 % (0-2.0); EOS % 1.6 % (0-4.5); HEMATOCRIT 28.8 % (32.4-45.2); HEMOGLOBIN 9.4 GM/dL (10.7-15.3); LYMPH % 23.8 % (8-40); MCH 30.3 pg (25.7-33.7); MCHC 32.7 g/dl (32.0-36.0); MEAN CELL VOLUME 92.7 fl (80-96); MEAN PLT VOLUME 6.9 fl (7.5-11.1); NEUT % 66.2 % (42.8-82.8); PLATELET COUNT 504 10^3/uL (134-434); RDW 13.4 % (11.6-15.6); WHITE BLOOD COUNT 8.7 K/mm3 (4.0-10.0)
[2023-04-30 07:58] LABS: POTASSIUM 4.1 mmol/L (3.5-5.1)
[2023-04-30] MEDS ORDERED: MECLIZINE HCL 25 MG TABLET (FP) PO PRN (08:03)
[2023-04-30 08:05] LABS: CALCIUM 8.9 mg/dL (8.5-10.1)
[2023-04-30 08:06] LABS: ALBUMIN 2.2 g/dl (3.4-5.0); BLOOD UREA NITROGEN 14.8 mg/dL (7-18); MAGNESIUM 2.1 mg/dL (1.8-2.4)
[2023-04-30 08:09] LABS: CREATININE 0.6 mg/dL (0.55-1.3)
[2023-04-30 08:10] LABS: BILIRUBIN,TOTAL 0.4 mg/dL (0.2-1); TOT PROT 5.6 g/dl (6.4-8.2)
[2023-04-30] MEDS ORDERED: ENOXAPARIN NA (PORCINE) 40 MG/0.4 ML DISP.SYRIN SQ SCH (10:00)
[2023-04-30] MEDS ORDERED: ATORVASTATIN CA 20 MG TABLET (FP) PO SCH (10:00)
[2023-04-30] MEDS: LACTATED RINGERS SOLUTION 1,000 ML/1,000 ML INFUS.BAG IV SCH (10:21)
[2023-04-30] MEDS: ATORVASTATIN CA 40 MG TABLET (FP) PO SCH (10:21)
[2023-04-30] MEDS: FAMOTIDINE 20 MG TABLET PO SCH (10:22)
[2023-04-30] MEDS: amLODIPine BESYLATE 5 MG TABLET (FP) PO SCH (11:14)
[2023-04-30] MEDS: TOPIRAMATE 25 MG TABLET PO SCH (11:15)
[2023-04-30] MEDS ORDERED: oxyCODONE HCL 5 MG TABLET ONE (12:13)
[2023-04-30] MEDS: oxyCODONE HCL 5 MG TABLET PO PRN (12:18)
[2023-05-01 11:44] LABS: INR 1.18 (0.83-1.09); PROTHROMBIN TIME (PATIENT) 13.7 SEC (9.7-13.0)
[2023-05-01 11:46] LABS: BASO % 0.3 % (0-2.0); HEMATOCRIT 28.7 % (32.4-45.2); HEMOGLOBIN 9.6 GM/dL (10.7-15.3); LYMPH % 17.9 % (8-40); MCH 30.5 pg (25.7-33.7); MCHC 33.4 g/dl (32.0-36.0); MEAN CELL VOLUME 91.5 fl (80-96); MEAN PLT VOLUME 6.6 fl (7.5-11.1); MONO % 6.9 % (3.8-10.2); NEUT % 73.9 % (42.8-82.8); PLATELET COUNT 509 10^3/uL (134-434); RBC 3.14 M/mm3 (3.60-5.2); RDW 13.4 % (11.6-15.6); WHITE BLOOD COUNT 8.4 K/mm3 (4.0-10.0)
[2023-05-01 12:04] LABS: POTASSIUM 4.1 mmol/L (3.5-5.1)
[2023-05-01 12:08] LABS: CALCIUM 8.5 mg/dL (8.5-10.1)
[2023-05-01 12:09] LABS: BLOOD UREA NITROGEN 13.3 mg/dL (7-18)
[2023-05-01 12:12] LABS: CREATININE 0.7 mg/dL (0.55-1.3)
[2023-05-01] MEDS ORDERED: PROPOFOL 20 ML ONE (14:10)
[2023-05-01] MEDS ORDERED: MIDAZOLAM HCL 2 MG/2 ML SINGLE DOSE VIAL ONE ×4 (14:11→16:35)
[2023-05-01] MEDS: ceFAZolin SODIUM 1 GM VIAL IVPB ONE (14:58)
[2023-05-01] MEDS ORDERED: DEXAMETHASONE SOD PHOSPHATE 4 MG/1 ML VIAL ONE (15:23)
[2023-05-01] MEDS ORDERED: ceFAZolin SODIUM 1 GM VIAL ONE (15:23)
[2023-05-01] MEDS ORDERED: ONDANSETRON 4 MG/2 ML VIAL ONE (15:23)
[2023-05-01] MEDS ORDERED: PHENYLEPHRINE HCL 10 MG/1 ML SINGLE DOSE VIAL ONE (15:23)
[2023-05-01] MEDS ORDERED: BENZOIN/ALOE VERA/STORAX/TOLU 58 ML BOTTLE ONE (16:15)
[2023-05-01] MEDS ORDERED: ONDANSETRON 4 MG/2 ML VIAL IVPUSH PRN (17:06)
[2023-05-01] MEDS ORDERED: MECLIZINE HCL 25 MG TABLET (FP) PO PRN (17:22)
[2023-05-01] MEDS ORDERED: ACETAMINOPHEN 325 MG TABLET (FP) PO PRN (17:22)
[2023-05-01] MEDS ORDERED: CEFAZOLIN 1 GM/D5W 1 GM/50 ML BAG IVPB SCH (18:00)
[2023-05-01] MEDS: CEFAZOLIN 1 GM in DEXTROSE 5%-WATER - 50 ML IVPB SCH ×2 (20:44→22:53)
[2023-05-01] MEDS: TOPIRAMATE 25 MG TABLET PO SCH (21:53)
[2023-05-01] MEDS: DOCUSATE SODIUM 100 MG CAPSULE (FP) PO SCH (21:53)
[2023-05-01] MEDS: FAMOTIDINE 20 MG TABLET PO SCH (21:53)
[2023-05-02] MEDS: INSULIN ASPART SLIDING SCALE (NOVOLOG) 1 VIAL SQ SCH (06:07)
[2023-05-02 08:49] LABS: BASO % 0.2 % (0-2.0); HEMATOCRIT 26.9 % (32.4-45.2); HEMOGLOBIN 9.1 GM/dL (10.7-15.3); LYMPH % 12.3 % (8-40); MCH 30.8 pg (25.7-33.7); MCHC 33.8 g/dl (32.0-36.0); MEAN PLT VOLUME 6.7 fl (7.5-11.1); MONO % 8.1 % (3.8-10.2); NEUT % 79.4 % (42.8-82.8); PLATELET COUNT 478 10^3/uL (134-434); RBC 2.95 M/mm3 (3.60-5.2); RDW 13.2 % (11.6-15.6); WHITE BLOOD COUNT 11.6 K/mm3 (4.0-10.0)
[2023-05-02 09:01] VITALS: RESP 18
[2023-05-02 09:14] LABS: POTASSIUM 3.8 mmol/L (3.5-5.1)
[2023-05-02 09:20] LABS: ALBUMIN 2.3 g/dl (3.4-5.0); BLOOD UREA NITROGEN 16.2 mg/dL (7-18); CALCIUM 8.8 mg/dL (8.5-10.1)
[2023-05-02] MEDS: ENOXAPARIN NA (PORCINE) 40 MG/0.4 ML DISP.SYRIN SQ SCH (09:22)
[2023-05-02 09:23] LABS: CREATININE 0.7 mg/dL (0.55-1.3)
[2023-05-02] MEDS: CHOLECALCIFEROL (VIT D3) 1,000 UNIT (25 MCG) TABLET PO SCH (09:23)
[2023-05-02] MEDS: amLODIPine BESYLATE 5 MG TABLET (FP) PO SCH (09:23)
[2023-05-02 09:25] LABS: TOT PROT 5.8 g/dl (6.4-8.2)
[2023-05-02] MEDS: LACTATED RINGERS SOLUTION 1,000 ML IV SCH (09:25)
[2023-05-02 09:27] LABS: BILIRUBIN,TOTAL 0.4 mg/dL (0.2-1)
[2023-05-02] MEDS: oxyCODONE HCL 5 MG TABLET PO PRN ×2 (11:07→17:45)
[2023-05-02] MEDS: ATORVASTATIN CA 40 MG TABLET (FP) PO SCH (11:09)
[2023-05-02] MEDS: ACETAMINOPHEN 1000 MG/100 ML BAG IVPB SCH (13:13)
[2023-05-02] MEDS: POLYETHYLENE GLYCOL (HEALTHYLAX) 3350 17 GM PACKET PO SCH (17:45)
[2023-05-04 10:42] VITALS: BP 135/61; PULSE 83; TEMP 99.2
== END 2023-05-04 14:13 | DRG 522 ==
LOC: JER 23:06 → JERBED 04-30 01:56 → J6S 04-30 21:45
PROVIDERS: ADMIT Internal Medicine; ATTEND Internal Medicine
PROC: 0SRR0JZ Replacement of Right Hip Joint, Femoral Surface with Synthetic Substitute, Open Approach (ICD-10-PCS; principal; 2023-05-02)
DX: S72.041A Displaced fracture of base of neck of right femur, initial encounter for closed fracture (principal); E11.9 Type 2 diabetes mellitus without complications; K21.9 Gastro-esophageal reflux disease without esophagitis; I10 Essential (primary) hypertension; E78.5 Hyperlipidemia, unspecified; D64.9 Anemia, unspecified; G43.909 Migraine, unspecified, not intractable, without status migrainosus; G50.0 Trigeminal neuralgia; K44.9 Diaphragmatic hernia without obstruction or gangrene; D75.839 Thrombocytosis, unspecified; W18.39XA Other fall on same level, initial encounter; Y92.098 Other place in other non-institutional residence as the place of occurrence of the external cause; Y99.9 Unspecified external cause status
CPT/HCPCS: 0241U-QW; 36415; 70450-TC; 71045-TC-FY; 72125-TC; 72170-TC-FY; 73502-TC-RT-FY; 73521-TC-FY; 73610-TC-RT-FY; 73630-TC-RT-FY; 80048; 80053; 81003; 82550; 82607; 82728; 82962; 83540; 83550; 83735; 84100; 84466; 84484; 85025; 85045; 85610; 85730; 86850; 86900; 86901; 87086; 88305-TC; 88311-TC; 93005; 93010; 94760; 97116-GP; 97162-GP; 99285-25; C1776; C1889; J0131

== ENCOUNTER 2023-07-31 09:02 | Inpatient (IN) | payer OTHER ==
[2023-07-31] MEDS: DEXTROSE 50%-WATER - 25 GM/50 ML VIAL IVPUSH ONE ×2 (09:15→14:47)
[2023-07-31 10:16] VITALS: BMI 22.1
[2023-07-31] MEDS ORDERED: DEXTROSE 50%-WATER 25 GM/50 ML DISP.SYRIN ONE ×2 (10:34→14:43)
[2023-07-31] MEDS ORDERED: MECLIZINE HCL 25 MG TABLET (FP) PO PRN (13:36)
[2023-07-31] MEDS ORDERED: PATIENT'S OWN MEDICATION (NON-FORMULARY) (Oxycodone Hcl [Oxaydo] 5 MG Tablet.Orl) PO PRN (13:36)
[2023-07-31] MEDS ORDERED: ACETAMINOPHEN 325 MG TABLET (FP) ONE (13:38)
[2023-07-31] MEDS: ACETAMINOPHEN 325 MG TABLET (FP) PO ONE (13:41)
[2023-07-31 14:22] LABS: BASO % 0.2 % (0-2.0); HEMATOCRIT 38.5 % (32.4-45.2); HEMOGLOBIN 12.6 GM/dL (10.7-15.3); LYMPH % 15.4 % (8-40); MCH 29.4 pg (25.7-33.7); MCHC 32.8 g/dl (32.0-36.0); MEAN CELL VOLUME 89.6 fl (80-96); MEAN PLT VOLUME 7.4 fl (7.5-11.1); MONO % 5.6 % (3.8-10.2); NEUT % 78.8 % (42.8-82.8); PLATELET COUNT 371 10^3/uL (134-434); RBC 4.29 M/mm3 (3.60-5.2); RDW 18.2 % (11.6-15.6); WHITE BLOOD COUNT 13.8 K/mm3 (4.0-10.0)
[2023-07-31 14:38] LABS: CHLORIDE 107 mmol/L (98-107); POTASSIUM 3.3 mmol/L (3.5-5.1); SODIUM 139 mmol/L (136-145)
[2023-07-31 14:40] LABS: ALBUMIN 3.2 g/dl (3.4-5.0); ANION GAP 5 mmol/L (4-13); CO2 27 mmol/L (21-32); MAGNESIUM 2.2 mg/dL (1.8-2.4)
[2023-07-31 14:43] LABS: CREATININE 0.8 mg/dL (0.55-1.3); PHOSPHOROUS 2.9 mg/dL (2.5-4.9); SGOT/AST 258 U/L (15-37)
[2023-07-31 14:44] LABS: SGPT/ALT 24 U/L (13-61)
[2023-07-31 14:45] LABS: BILIRUBIN,TOTAL 0.4 mg/dL (0.2-1); TOT PROT 6.3 g/dl (6.4-8.2)
[2023-07-31 14:46] LABS: ALK PHOS 68 U/L (45-117)
[2023-07-31] MEDS ORDERED: OXYCODONE HCL PO PRN (14:54)
[2023-07-31 15:10] LABS: GLUCOSE,RANDOM 41 mg/dL (74-106)
[2023-07-31] MEDS ORDERED: DEXTROSE 5%-WATER - 1,000 ML IV SCH ×2 (15:15)
[2023-07-31] MEDS: DEXTROSE 5%-LACTATED RINGERS 1,000 ML IV SCH (16:13)
[2023-07-31] MEDS ORDERED: ATORVASTATIN CA 40 MG TABLET (FP) PO SCH (22:00)
[2023-07-31] MEDS: TOPIRAMATE 25 MG TABLET PO SCH (22:31)
[2023-07-31] MEDS: DOCUSATE SODIUM 100 MG CAPSULE (FP) PO SCH (22:31)
[2023-07-31] MEDS: IBUPROFEN 200 MG TABLET PO PRN (22:31)
[2023-07-31] MEDS: LIDOCAINE PATCH REMOVAL MC SCH (22:33)
[2023-07-31] MEDS: FAMOTIDINE 20 MG TABLET PO SCH (22:33)
[2023-08-01] MEDS: INSULIN ASPART SLIDING SCALE (NOVOLOG) 1 VIAL SQ SCH (03:22)
[2023-08-01 06:41] LABS: BASO % 0.2 % (0-2.0); EOS % 0.6 % (0-4.5); HEMATOCRIT 32.9 % (32.4-45.2); HEMOGLOBIN 10.8 GM/dL (10.7-15.3); LYMPH % 17.9 % (8-40); MCH 29.6 pg (25.7-33.7); MCHC 32.9 g/dl (32.0-36.0); MEAN CELL VOLUME 89.9 fl (80-96); MONO % 7.9 % (3.8-10.2); NEUT % 73.4 % (42.8-82.8); PLATELET COUNT 306 10^3/uL (134-434); RBC 3.66 M/mm3 (3.60-5.2); RDW 17.7 % (11.6-15.6); WHITE BLOOD COUNT 10.4 K/mm3 (4.0-10.0)
[2023-08-01 06:52] LABS: POTASSIUM 3.1 mmol/L (3.5-5.1)
[2023-08-01 06:56] LABS: BLOOD UREA NITROGEN 9.2 mg/dL (7-18); CALCIUM 8.7 mg/dL (8.5-10.1)
[2023-08-01 06:59] LABS: CREATININE 0.9 mg/dL (0.55-1.3)
[2023-08-01] MEDS ORDERED: INSULIN ASPART SLIDING SCALE (NOVOLOG) 1 VIAL SQ SCH (07:00)
[2023-08-01 07:01] LABS: BILIRUBIN,TOTAL 0.4 mg/dL (0.2-1)
[2023-08-01 07:19] LABS: ALBUMIN 2.6 g/dl (3.4-5.0)
[2023-08-01] MEDS: HEPARIN NA (PORCINE) 5,000 UNITS/ML 1ML VIAL SQ SCH (10:25)
[2023-08-01] MEDS: LIDOCAINE 4% PATCH TP SCH (10:26)
[2023-08-01] MEDS: POLYETHYLENE GLYCOL (HEALTHYLAX) 3350 17 GM PACKET PO SCH (10:27)
[2023-08-01] MEDS: amLODIPine BESYLATE 5 MG TABLET (FP) PO SCH (10:27)
[2023-08-01] MEDS: POTASSIUM CHLORIDE ORAL LIQUID 20 MEQ/15 ML PO ONE ×3 (11:32→17:16)
[2023-08-01] MEDS: oxyCODONE HCL 5 MG TABLET PO PRN (14:15)
[2023-08-01 20:58] VITALS: RESP 18
[2023-08-02 07:00] VITALS: PULSE 76
[2023-08-02 08:29] LABS: POTASSIUM 3.6 mmol/L (3.5-5.1)
[2023-08-02 08:44] LABS: CALCIUM 8.6 mg/dL (8.5-10.1)
[2023-08-02 08:45] LABS: ALBUMIN 2.4 g/dl (3.4-5.0); BLOOD UREA NITROGEN 8.4 mg/dL (7-18)
[2023-08-02 08:48] LABS: CREATININE 0.6 mg/dL (0.55-1.3)
[2023-08-02 08:49] LABS: BILIRUBIN,TOTAL 0.6 mg/dL (0.2-1); TOT PROT 5.2 g/dl (6.4-8.2)
[2023-08-02 14:59] VITALS: BP 115/57; TEMP 99.1
== END 2023-08-02 19:28 | disposition home or self-care (01) | DRG 638 ==
LOC: JER 09:02 → JERBED 11:25 → J7W 19:46 → OBSVTOIN 08-01 10:24 → J7W 08-01 18:43
PROVIDERS: ATTEND Internal Medicine
DX: E11.649 Type 2 diabetes mellitus with hypoglycemia without coma (principal); E44.0 Moderate protein-calorie malnutrition; M62.82 Rhabdomyolysis; I10 Essential (primary) hypertension; E78.5 Hyperlipidemia, unspecified; K21.9 Gastro-esophageal reflux disease without esophagitis; E11.40 Type 2 diabetes mellitus with diabetic neuropathy, unspecified; Z68.22 Body mass index [BMI] 22.0-22.9, adult; K59.00 Constipation, unspecified
CPT/HCPCS: 36415; 73521-TC-FY; 80053; 80299; 82550; 82553; 82962; 83036; 83735; 84100; 85025; 93005; 93010; 97116-GP; 97162-GP; 99285-25; G0378; J1644

== ENCOUNTER 2023-08-10 18:23 | Inpatient (IN) | payer OTHER ==
[2023-08-10] MEDS ORDERED: ACETAMINOPHEN INJECTION 100 ML IVPB ONE (20:20)
[2023-08-10] MEDS ORDERED: MORPHINE SULFATE 2 MG/ML SYRINGE ONE (20:20)
[2023-08-10] MEDS: morphine CARPU-JECT 2 MG/1 ML DISP.SYRIN IVPUSH ONE (20:39)
[2023-08-10] MEDS: ACETAMINOPHEN 1000 MG/100 ML BAG IVPB ONE (20:40)
[2023-08-10 21:57] LABS: BASO % 0.2 % (0-2.0); EOS % 0.1 % (0-4.5); HEMATOCRIT 34.7 % (32.4-45.2); HEMOGLOBIN 11.3 GM/dL (10.7-15.3); LYMPH % 15.6 % (8-40); MCH 29.4 pg (25.7-33.7); MCHC 32.6 g/dl (32.0-36.0); MEAN CELL VOLUME 90.1 fl (80-96); MEAN PLT VOLUME 6.7 fl (7.5-11.1); NEUT % 79.1 % (42.8-82.8); PLATELET COUNT 442 10^3/uL (134-434); RBC 3.85 M/mm3 (3.60-5.2); RDW 17.8 % (11.6-15.6); WHITE BLOOD COUNT 11.7 K/mm3 (4.0-10.0)
[2023-08-10 22:02] LABS: INR 0.94 (0.83-1.09); PROTHROMBIN TIME (PATIENT) 10.8 SEC (9.7-13.0)
[2023-08-10] MEDS ORDERED: PROPOFOL 20 ML ONE (23:20)
[2023-08-10] MEDS: PROPOFOL 200 MG/20 ML VIAL IVPUSH ONE ×2 (23:29→23:33)
[2023-08-10] MEDS ORDERED: ONDANSETRON 4 MG/2 ML VIAL ONE (23:45)
[2023-08-10 23:52] LABS: CHLORIDE 109 mmol/L (98-107); POTASSIUM 3.5 mmol/L (3.5-5.1); SODIUM 140 mmol/L (136-145)
[2023-08-10] MEDS: ONDANSETRON 4 MG/2 ML VIAL IVPUSH ONE (23:52)
[2023-08-10 23:56] LABS: ANION GAP 7 mmol/L (4-13); BLOOD UREA NITROGEN 8.6 mg/dL (7-18); CALCIUM 9.1 mg/dL (8.5-10.1); CO2 24 mmol/L (21-32); MAGNESIUM 2.1 mg/dL (1.8-2.4)
[2023-08-10 23:59] LABS: PHOSPHOROUS 3.5 mg/dL (2.5-4.9); SGOT/AST 30 U/L (15-37)
[2023-08-11] LABS: CREATININE 0.7 mg/dL (0.55-1.3); SGPT/ALT 13 U/L (13-61)
[2023-08-11 00:01] LABS: BILIRUBIN,TOTAL 0.3 mg/dL (0.2-1); TOT PROT 6.4 g/dl (6.4-8.2)
[2023-08-11 00:02] LABS: ALK PHOS 63 U/L (45-117)
[2023-08-11 00:56] LABS: ALBUMIN 3.2 g/dl (3.4-5.0); GLUCOSE,RANDOM 33 mg/dL (74-106)
[2023-08-11] MEDS ORDERED: DEXTROSE 50%-WATER 25 GM/50 ML DISP.SYRIN ONE ×2 (01:15→06:09)
[2023-08-11] MEDS: DEXTROSE 50%-WATER - 25 GM/50 ML VIAL IVPUSH ONE ×3 (01:31→06:18)
[2023-08-11] MEDS: LACTATED RINGERS SOLUTION 1,000 ML/1,000 ML INFUS.BAG IV SCH (01:31)
[2023-08-11] MEDS ORDERED: MORPHINE SULFATE 2 MG/ML SYRINGE IVPUSH PRN (02:39)
[2023-08-11] MEDS ORDERED: KETOROLAC TROMETHAMINE 15 MG/ML VIAL IVPUSH PRN (02:39)
[2023-08-11] MEDS ORDERED: LACTATED RINGERS SOLUTION 1,000 ML/1,000 ML INFUS.BAG IV SCH (03:30)
[2023-08-11] MEDS ORDERED: DIPHTH,PERTUSS(ACELL),TET 0.5 ML DISP.SYRIN IM ONE ×2 (03:35→03:36)
[2023-08-11] MEDS: DIPHTH,PERTUSS(ACELL),TET 0.5 ML DISP.SYRIN IM ONE (03:47)
[2023-08-11] MEDS: SODIUM CHLORIDE 1,000 ML IV SCH (03:49)
[2023-08-11] MEDS ORDERED: DEXTROSE 50%-WATER 25 GM/50 ML DISP.SYRIN IVPUSH PRN (06:09)
[2023-08-11] MEDS: DEXTROSE 5%-WATER - 1,000 ML IV SCH (06:54)
[2023-08-11] MEDS: INSULIN ASPART SLIDING SCALE (NOVOLOG) 1 VIAL SQ SCH (08:08)
[2023-08-11 08:46] LABS: HEMATOCRIT 33.7 % (32.4-45.2); MCH 29.7 pg (25.7-33.7); MCHC 32.6 g/dl (32.0-36.0); MEAN CELL VOLUME 90.9 fl (80-96); MEAN PLT VOLUME 6.7 fl (7.5-11.1); PLATELET COUNT 381 10^3/uL (134-434); RBC 3.71 M/mm3 (3.60-5.2); RDW 17.9 % (11.6-15.6); WHITE BLOOD COUNT 9.9 K/mm3 (4.0-10.0)
[2023-08-11 09:06] LABS: POTASSIUM 3.4 mmol/L (3.5-5.1)
[2023-08-11 09:08] LABS: CALCIUM 8.7 mg/dL (8.5-10.1)
[2023-08-11 09:09] LABS: ALBUMIN 2.7 g/dl (3.4-5.0); BLOOD UREA NITROGEN 6.2 mg/dL (7-18); MAGNESIUM 2.1 mg/dL (1.8-2.4)
[2023-08-11 09:12] LABS: CREATININE 0.7 mg/dL (0.55-1.3); PHOSPHOROUS 3.7 mg/dL (2.5-4.9)
[2023-08-11 09:13] LABS: BILIRUBIN,TOTAL 0.4 mg/dL (0.2-1); TOT PROT 5.6 g/dl (6.4-8.2)
[2023-08-11] MEDS: SERTRALINE HCL 50 MG TABLET (FP) PO SCH (09:40)
[2023-08-11] MEDS: TOPIRAMATE 25 MG TABLET PO SCH (09:40)
[2023-08-11] MEDS: ENOXAPARIN NA (PORCINE) 40 MG/0.4 ML DISP.SYRIN SQ SCH (09:40)
[2023-08-11] MEDS: amLODIPine BESYLATE 5 MG TABLET (FP) PO SCH (09:40)
[2023-08-11] MEDS ORDERED: amLODIPine BESYLATE 5 MG TABLET (FP) ONE (09:41)
[2023-08-11] MEDS ORDERED: ENOXAPARIN NA (PORCINE) 40 MG/0.4 ML DISP.SYRIN SQ ONE (09:41)
[2023-08-11 18:09] VITALS: BMI 22.1
[2023-08-11] MEDS: HEPARIN NA (PORCINE) 5,000 UNITS/ML 1ML VIAL SQ SCH (22:58)
[2023-08-11] MEDS: MECLIZINE HCL 12.5 MG TABLET PO PRN (23:05)
[2023-08-12] MEDS ORDERED: morphine SULFATE 4 MG/ML VIAL IVPUSH PRN (00:12)
[2023-08-12] MEDS ORDERED: INSULIN ASPART SLIDING SCALE (NOVOLOG) 1 VIAL SQ ONE (11:40)
[2023-08-12] MEDS: POTASSIUM CHLORIDE ORAL LIQUID 20 MEQ/15 ML PO ONE (13:57)
[2023-08-13 08:18] LABS: BASO % 0.4 % (0-2.0); EOS % 5.7 % (0-4.5); HEMATOCRIT 33.5 % (32.4-45.2); HEMOGLOBIN 10.9 GM/dL (10.7-15.3); LYMPH % 30.9 % (8-40); MCH 29.5 pg (25.7-33.7); MCHC 32.4 g/dl (32.0-36.0); MEAN PLT VOLUME 7.1 fl (7.5-11.1); MONO % 6.6 % (3.8-10.2); NEUT % 56.4 % (42.8-82.8); PLATELET COUNT 380 10^3/uL (134-434); RBC 3.69 M/mm3 (3.60-5.2); RDW 17.4 % (11.6-15.6); WHITE BLOOD COUNT 7.9 K/mm3 (4.0-10.0)
[2023-08-13 08:33] LABS: POTASSIUM 3.9 mmol/L (3.5-5.1)
[2023-08-13 08:44] LABS: CALCIUM 8.7 mg/dL (8.5-10.1)
[2023-08-13 08:48] LABS: BLOOD UREA NITROGEN 12.9 mg/dL (7-18)
[2023-08-13 08:51] LABS: CREATININE 0.7 mg/dL (0.55-1.3)
[2023-08-14] MEDS: ACETAMINOPHEN 500 MG TABLET (FP) PO PRN ×2 (03:24→21:31)
[2023-08-14] MEDS ORDERED: KETOROLAC TROMETHAMINE 15 MG/ML VIAL IVPUSH PRN (07:22)
[2023-08-14] MEDS ORDERED: MECLIZINE HCL 12.5 MG TABLET PO PRN (07:22)
[2023-08-14] MEDS: SERTRALINE HCL 50 MG TABLET (FP) PO SCH (11:25)
[2023-08-14] MEDS: TOPIRAMATE 25 MG TABLET PO SCH (11:25)
[2023-08-14] MEDS: ENOXAPARIN NA (PORCINE) 40 MG/0.4 ML DISP.SYRIN SQ SCH (11:25)
[2023-08-14] MEDS: amLODIPine BESYLATE 5 MG TABLET (FP) PO SCH (11:25)
[2023-08-14] MEDS: INSULIN ASPART SLIDING SCALE (NOVOLOG) 1 VIAL SQ SCH (12:11)
[2023-08-15 15:23] VITALS: RESP 18
[2023-08-15 18:54] VITALS: BP 123/57; PULSE 76; TEMP 97.2
== END 2023-08-15 21:14 | disposition home health service (06) | DRG 560 ==
LOC: JER 18:23 → JERBED 08-11 00:10 → J4S 08-11 13:00 → OBSVTOIN 08-13 15:07 → J5S 08-14 02:19
PROVIDERS: ADMIT Internal Medicine; ATTEND Internal Medicine
PROC: 0SS9XZZ Reposition Right Hip Joint, External Approach (ICD-10-PCS; principal; 2023-08-10)
DX: T84.020A Dislocation of internal right hip prosthesis, initial encounter (principal); I24.89 Other forms of acute ischemic heart disease; M62.82 Rhabdomyolysis; D49.0 Neoplasm of unspecified behavior of digestive system; K57.90 Diverticulosis of intestine, part unspecified, without perforation or abscess without bleeding; E78.5 Hyperlipidemia, unspecified; I10 Essential (primary) hypertension; F32.A Depression, unspecified; E11.649 Type 2 diabetes mellitus with hypoglycemia without coma; G50.0 Trigeminal neuralgia; K44.9 Diaphragmatic hernia without obstruction or gangrene; K21.9 Gastro-esophageal reflux disease without esophagitis; G43.909 Migraine, unspecified, not intractable, without status migrainosus; R42 Dizziness and giddiness; K59.00 Constipation, unspecified; W18.30XA Fall on same level, unspecified, initial encounter; Z96.643 Presence of artificial hip joint, bilateral
CPT/HCPCS: 36415; 70450-TC; 71045-TC-FY; 72125-TC; 72170-TC-FY; 73030-TC-RT-FY; 73502-TC-RT-FY; 73521-TC-FY; 73552-TC-RT-FY; 80048; 80053; 82550; 82553; 82962; 83036; 83735; 84100; 84484; 85025; 85027; 85610; 85730; 90715; 93005; 93010; 97116-GP; 97162-GP; 99285-25; G0378; J0131; J1644